=== PATIENT | female | born 1995 | race Caucasian/White ===

== ENCOUNTER 2016-08-12 19:12 | Emergency (ER) | payer OTHER ==
[2016-08-12 22:05] LABS: BASO # 0.1 K/mm3 (0.0-0.2); BASO % 0.6 % (0.0-1.0); EOS # 0.1 K/mm3 (0.0-0.50); EOS % 1.1 % (0.0-3.0); LARGE UNSTAINED CELL # 0.2 K/mm3 (0.0-0.4); LARGE UNSTAINED CELL % 1.8 % (0.0-4.0); LYMPH # 3.2 K/mm3 (1.5-6.5); MEAN CORPUSCULAR HGB CONC 33.8 g/dl (32.0-36.5); MEAN CORPUSCULAR VOLUME 91.6 fl (80.0-96.0); MONO # 0.6 K/mm3 (0.0-0.8); MONO % 4.4 % (0.0-5.0); NEUTROPHILS % 68.2 % (36.0-66.0); PLATELET COUNT, AUTOMATED 259 k/mm3 (150-450); RED CELL DISTRIBUTION WIDTH 11.8 % (11.5-14.5); WHITE BLOOD COUNT 13.2 K/mm3 (4.0-10.0)
[2016-08-12 22:31] LABS: ANION GAP 8 MEQ/L (8-16); BLOOD UREA NITROGEN 12 MG/DL (7-18); CALCIUM LEVEL 9.3 MG/DL (8.5-10.1); CARBON DIOXIDE LEVEL 26 MEQ/L (21-32); CHLORIDE LEVEL 106 MEQ/L (98-107); CREATININE FOR GFR 0.66 MG/DL (0.55-1.02); GLOMERULAR FILTRATION RATE > 60.0 (>60); GLUCOSE, FASTING 89 MG/DL (70-105); HCG, SERUM QUANTITATIVE 19364 MIU/ML; POTASSIUM SERUM 4.3 MEQ/L (3.5-5.1); SODIUM LEVEL 140 MEQ/L (136-145)
[2016-08-12] MEDS ORDERED: ACETAMINOPHEN 325 MG TAB As Ordered ONE ×2 (22:41→22:42)
--- NOTE | 2016-08-13 | REPUSA ---
Clinical history: vaginal spotting. Findings: Real-time transabdominal and transvaginal ultrasound images of the pelvis were obtained.a s too live intrauterine is demonstrated. The uterus measures 8.2 x 4.6 x 6.1 cm. The crown rump length measures 0.6 cm. heart rate measures 116 bpm. No subchorionic hemorrhage is identi fied. The uterus and adnexa appear grossly unremarkable, other than a simple right ovarian cyst measu ring 2.3 cm. The right ovary measures 3.8 x 2.3 x 2.6 cm. The left ovary was not visualized. There is no evidence of free fluid. Impression: Single live intrauterine measuring 6 weeks 3 days by ultrasound measurements, w ith a heart rate of 116 bpm. Right ovarian corpus luteum cyst.
[2016-08-13] MEDS ORDERED: OXYCODONE/APAP 5MG/325MG(BULK) 1 TAB TAB As Ordered ONE (01:52)
[2016-08-13] MEDS ORDERED: NORCO 5/325MG TABLET (BULK) As Ordered ONE (01:58)
--- NOTE | 2016-08-13 02:06 | EDDOCDS ---
Nurse's Notes [facility] Name: Rajani Brice Age: 21 yrs Sex: Female : 1995 Arrival Date: 08/12/2016 Time: 19:12 Bed I5 / M5 Private MD: Esther Garzon M. Diagnosis: Pelvic and perineal pain; related conditions, unspecified, first trimester Presentation: 08/12 19:22 Presenting complaint: Patient states: 7 weeks and had short episode of jo3 bleeding earlier. Bleeding has resolved now and pt denies cramping. Risk factors: The patient reports no loss of conciousness prior to arrival. This patient has not had a hysterectomy. This patient has not begun menopause. Adult Sepsis Screening: The patient does not have new or worsening altered mentation. Patient's respiratory rate is less than 22. Systolic blood pressure is greater than 100. Patient has a qSOFA score of 0- Negative Sepsis Screen. Suicide/Homicide risk assessment- the patient denies having any suicidal and/or homicidal ideations and does not present with any other emotional, behavioral or mental health complaints. Status: The patient is a dependent. Transition of care: patient was not received from another setting of care. 19:22 Acuity: JARRELL Level 3 jo3 19:22 Method Of Arrival: Walkin/Carried/Asstd jo3 Triage Assessment: 19:25 General: Appears in no apparent distress, Behavior is appropriate for age, cooperative. jo3 Pain: Denies pain. HIV screening NA for this visit Offered previously. Neurological: Level of Consciousness is awake, alert, Oriented to person, place, time. Respiratory: Airway is patent Respiratory effort is even, unlabored. : Reports vaginal bleeding that is resolving. Derm: Skin is pink, warm & dry. 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 folic acid 800 mcg Oral tab 3 tab once daily 2. Vitamin Oral tab 1 tab once daily - PMHx: Anxiety; Depression; Irritable bowel syndrome; - PSHx: Appendectomy; Cholecystectomy; - Social history: Smoking status: Patient states former smoker of tobacco. No barriers to communication noted, The patient speaks fluent Syriac, Speaks appropriately for age. - Family history: Not pertinent. - : The pt / caregiver states he / she is not on anticoagulants. Home medication list is obtained from the patient. - Exposure Risk Screening:: None identified. Screenin:17 Screening information is obtained from the patient. Fall risk: No risks identified. af2 Assistance ADL's: requires no assistance with activities of daily living. Abuse/DV Screen: The patient / caregiver reports he/she is: not in a situation that causes fear, pain or injury. Nutritional screening: No deficits noted. Advance Directives: Currently, there is no health care proxy. home support is adequate. Assessment: 22:43 General: Appears in no apparent distress, uncomfortable, Behavior is cooperative, pt af2 pacing, medicated for pain. states "is there a reason that i'm cramping?". 23:17 General: Appears in no apparent distress, Behavior is cooperative. Neurological: Level af2 of Consciousness is awake, alert. Respiratory: Airway is patent Respiratory effort is even, unlabored. Derm: Skin is normal. 08/13 00:15 General: Appears in no apparent distress, Behavior is cooperative. Neurological: Level af2 of Consciousness is awake, alert. Respiratory: Airway is patent Respiratory effort is even, unlabored. Derm: Skin is normal. 02:03 Reassessment: Patient appears in no apparent distress at this time. Patient states slm feeling better. Respiratory: No deficits noted. Vital Signs: 08/12 19:13 BP 156 / 76; Pulse 92; Resp 18; Temp 97.7(O); Pulse Ox 100% on R/A; Weight 81.65 kg ct3 (R); Height 5 ft. 6 in. (167.64 cm) (R); Pain 0/10; 08/13 01:50 BP 129 / 66; Pulse 84; Resp 18; Temp 97.8; Pulse Ox 98% ; Pain 4/10; ajs 01:55 BP 122 / 55; Pulse 94; Resp 18; Temp 98.5; Pulse Ox 99% ; Pain 7/10; ajs 08/12 19:13 Body Mass Index 29.05 (81.65 kg, 167.64 cm) ct3 Vitals: 08/12 19:13 Log In Time: August 12, 2016 at 19:10. ct3 ED Course: 19:13 Patient visited by Annette Whitfield PCA. ct3 19:13 Patient moved to Waiting ct3 19:14 Esther Garzon is Private Physician. ct3 19:14 Patient moved to Pre RCE ct3 19:24 Triage Initiated jo3 20:44 Patient visited by Beatrice Mcdonnell PCA. jb5 20:44 Patient moved to Triage 1 jb5 20:46 Dexter Chaparro RPA-C is PHCP. ck7 20:46 Alvin Venegas DO is Attending Physician. ck7 20:54 [facility] Payment Agreement was scanned into [employer] and attached to record. zo 21:03 Patient visited by Dexter Chaparro RPA-C. ck7 21:09 Patient moved to I5 / M5 jf3 21:40 Hcg, Serum Quantitative Sent. mcp 21:40 Urine Culture Sent. mcp 21:40 UA Sent. mcp 21:40 Type & Screen Sent. mcp 21:40 MED Profile Sent. mcp 21:40 CBC with Diff Sent. mcp 21:42 Patient visited by Dexter Chaparro RPA-C. ck7 22:17 Patient visited by Dexter Chaparro RPA-C. ck7 22:44 Patient visited by Lucia Asher RN. af2 23:18 Patient visited by Lucia Asher,RN. af2 23:30 Patient visited by Lucia Asher,RN. af2 08/13 00:02 Patient visited by Dexter Chaparro RPA-C. ck7 00:02 US 1st trimester Returned. EDMS 00:11 Wet Prep Sent. ajs 00:11 GC & Chlamydia Amplification Sent. ajs 00:11 Assist provider with pelvic exam: Set up pelvic tray. Specimens sent to lab. Performed slm by Dexter MOON Patient tolerated well. 00:36 Patient visited by Dexter Chaparro RPA-C. ck7 01:04 Patient visited by Lucia Asher,ANDREW. af2 01:10 PHCP role handed off by Dexter Chaparro RPA-C mo1 01:10 Raghav Vanegas PA is PHCP. mo1 01:48 Esther Garzon is Referral Physician. mo1 01:49 Cornell Willams MD is Referral Physician. mo1 01:50 Patient visited by Randi Christiansen. ajs 01:56 Patient visited by Randi Christiansen. ajs 02:02 Discontinued lock intact, bleeding controlled, pressure dressing applied, No slm redness/swelling at site. 02:04 The patient / caregiver is instructed regarding the plan of care and ED course. Patient slm has correct armband on for positive identification. Bed in low position. Call light in reach. Side rails up X 1. 02:05 Patient visited by Rena Amezquita LPN. slm Administered Medications: 08/12 21:47 Drug: NS 0.9% 1000 ml [sodium chloride 0.9 % intravenous solution] Route: IV; Rate: mcp bolus; Site: right antecubital; 08/13 02:04 Follow up: IV Status: Completed infusion slm 08/12 22:43 Drug: Acetaminophen 650 mg [acetaminophen 325 mg tablet (2 tabs)] Route: PO; af2 08/13 01:56 CANCELLED (Other Intervention Used): oxyCODONE-acetaminophen 4 pack 5 mg-325 mg 1 mo1 packets PO once; Dispense with pt, take as per instruction on package 02:02 Drug: HYDROcodone-acetaminophen 4 pack- 1 packets [hydrocodone 5 mg-acetaminophen 325 slm mg tablet (1 tabs)] {Co-Signature: af2 (Lucia Asher RN).} Route: PO; Order Results: Lab Order: CBC with Diff; SPEC'M 08/12/16 21:38 Test: WHITE BLOOD COUNT; Value: 13.2; Range: 4.0-10.0; Abnormal: Above high normal; Units: K/mm3; Status: F Test: RED BLOOD COUNT; Value: 4.54; Range: 4.00-5.40; Units: M/mm3; Status: F Test: HEMOGLOBIN; Value: 14.1; Range: 12.0-16.0; Units: g/dl; Status: F Test: HEMATOCRIT; Value: 41.6; Range: 36.0-47.0; Units: %; Status: F Test: MEAN CORPUSCULAR VOLUME; Value: 91.6; Range: 80.0-96.0; Units: fl; Status: F Test: MEAN CORPUSCULAR HEMOGLOBIN; Value: 31.0; Range: 27.0-33.0; Units: pg; Status: F Test: MEAN CORPUSCULAR HGB CONC; Value: 33.8; Range: 32.0-36.5; Units: g/dl; Status: F Test: RED CELL DISTRIBUTION WIDTH; Value: 11.8; Range: 11.5-14.5; Units: %; Status: F Test: PLATELET COUNT, AUTOMATED; Value: 259; Range: 150-450; Units: k/mm3; Status: F Test: NEUTROPHILS %; Value: 68.2; Range: 36.0-66.0; Abnormal: Above high normal; Units: %; Status: F Test: LYMPH %; Value: 24.0; Range: 24.0-44.0; Units: %; Status: F Test: MONO %; Value: 4.4; Range: 0.0-5.0; Units: %; Status: F Test: EOS %; Value: 1.1; Range: 0.0-3.0; Units: %; Status: F Test: BASO %; Value: 0.6; Range: 0.0-1.0; Units: %; Status: F Test: LARGE UNSTAINED CELL %; Value: 1.8; Range: 0.0-4.0; Units: %; Status: F Test: NEUTROPHILS #; Value: 9.0; Range: 1.8-7.7; Abnormal: Above high normal; Units: K/mm3; Status: F Test: LYMPH #; Value: 3.2; Range: 1.5-6.5; Units: K/mm3; Status: F Test: MONO #; Value: 0.6; Range: 0.0-0.8; Units: K/mm3; Status: F Test: EOS #; Value: 0.1; Range: 0.0-0.50; Units: K/mm3; Status: F Test: BASO #; Value: 0.1; Range: 0.0-0.2; Units: K/mm3; Status: F Test: LARGE UNSTAINED CELL #; Value: 0.2; Range: 0.0-0.4; Units: K/mm3; Status: F Lab Order: MED Profile; SPEC'M 08/12/16 21:38 Test: GLUCOSE, FASTING; Value: 89; Range: 70-105; Units: MG/DL; Status: F Test: BLOOD UREA NITROGEN; Value: 12; Range: 7-18; Units: MG/DL; Status: F Test: CREATININE FOR GFR; Value: 0.66; Range: 0.55-1.02; Units: MG/DL; Status: F Test: GLOMERULAR FILTRATION RATE; Value: > 60.0; Range: >60; Status: F Test: SODIUM LEVEL; Value: 140; Range: 136-145; Units: MEQ/L; Status: F Test: POTASSIUM SERUM; Value: 4.3; Range: 3.5-5.1; Units: MEQ/L; Status: F Test: CHLORIDE LEVEL; Value: 106; Range: 98-107; Units: MEQ/L; Status: F Test: CARBON DIOXIDE LEVEL; Value: 26; Range: 21-32; Units: MEQ/L; Status: F Test: ANION GAP; Value: 8; Range: 8-16; Units: MEQ/L; Status: F Test: CALCIUM LEVEL; Value: 9.3; Range: 8.5-10.1; Units: MG/DL; Status: F Test Note: ; Units are mL/min/1.73 m2 Chronic Kidney Disease Staging per NKF: Stage I & II GFR >=60 Normal to Mildly Decreased Stage III GFR 30-59 Moderately Decreased Stage IV GFR 15-29 Severely Decreased Stage V GFR <15 Very Little GFR Left ESRD GFR <[address]GE Lab Order: Type & Screen; SPEC'M 08/12/16 21:38 Test: BLOOD TYPE; Value: A POS; Status: F Test: AB SCREEN (INDIRECT YELITZA)GEL; Value: NEGATIVE; Status: F Lab Order: UA; SPEC'M 08/12/16 21:37 Test: APPEARANCE, URINE; Value: HAZY; Range: CLEAR; Status: F Test: COLOR, URINE; Value: YELLOW; Range: YELLOW; Status: F Test: PH,URINE; Value: 7.0; Range: 5.0-9.0; Units: UNITS; Status: F Test: SPECIFIC GRAVITY URINE AUTO; Value: 1.009; Range: 1.002-1.035; Status: F Test: PROTEIN, URINE AUTO; Value: NEGATIVE; Range: NEGATIVE; Units: mg/dL; Status: F Test: GLUCOSE, URINE (UA) AUTO; Value: NEGATIVE; Range: NEGATIVE; Units: mg/dL; Status: F Test: KETONE, URINE AUTO; Value: NEGATIVE; Range: NEGATIVE; Units: mg/dL; Status: F Test: UROBILINOGEN, URINE AUTO; Value: 0.2; Range: 0.0-2.0; Units: mg/dL; Status: F Test: BILIRUBIN, URINE AUTO; Value: NEGATIVE; Range: NEGATIVE; Status: F Test: NITRITE, URINE AUTO; Value: NEGATIVE; Range: NEGATIVE; Status: F Test: LEUKOCYTE ESTERASE, URINE AUTO; Value: 3+; Range: NEGATIVE; Abnormal: Above high normal; Status: F Test: BLOOD, URINE BLOOD; Value: 2+; Range: NEGATIVE; Abnormal: Above high normal; Status: F Test: WBC, URINE AUTO; Value: 6; Range: 0-3; Abnormal: Above high normal; Units: /HPF; Status: F Test: RBC, URINE AUTO; Value: 2; Range: 0-3; Units: /HPF; Status: F Test: BACTERIA, URINE AUTO; Value: 3+; Range: NEGATIVE; Abnormal: Above high normal; Status: F Test: SQUAMOUS EPITHELIAL CELL UR AU; Value: 2; Range: 0-6; Units: /HPF; Status: F Test: MUCUS, URINE; Value: SMALL; Range: NEGATIVE; Status: F Test: HYALINE CAST, URINE AUTO; Value: 0; Range: 0-1; Units: /LPF; Status: F Test: AMORPHOUS SEDIMENT; Value: SMALL; Range: NEGATIVE; Abnormal: Above high normal; Status: F Lab Order: Hcg, Serum Quantitative; SPEC'M 08/12/16 21:38 Test: HCG, SERUM QUANTITATIVE; Value: 58260; Units: MIU/ML; Status: F Test Note: ; GESTATIONAL AGE APPROXIMATE HCG RANGE (MIU/ML) 0.2-1 WEEK 5-50 1-2 WEEKS 50-500 2-3 WEEKS 100-5,000 3-4 WEEKS 500-10,000 4-5 WEEKS 1,000-50,000 5-6 WEEKS 10,000-100,000 6-8 WEEKS 15,000-200,000 2-3 MONTHS 10,000-100,000 NON FEMALES LESS THAN 3.0 Patient samples may contain human heterophilic antibodies that could react with immunoassays to give falsely elevated or depressed results. This assay has been designed to minimize interference from heterophilic antibodies. Elevated hCG levels have also been associated with trophoblastic disease and nontrophoblastic neoplasms. The possibility of having these diseases should be considered before a diagnosis of is made. This test is not intended for use as a surrogate marker for aiding in the diagnosis or monitoring the treatment of cancer patients. [employer] methodology. Lab Order: Wet Prep; SPEC'M 08/12/16 21:37 Test: WET PREP; Value: WET PREP RESULT; Status: F Test: WET PREP; Value: MANY EPITHELIAL CELLS PRESENT; Status: F Test: WET PREP; Value: MODERATE WBC; Status: F Test: WET PREP; Value: MODERATE LONG RODS PRESENT; Status: F Test: WET PREP; Value: FEW SHORT RODS PRESENT; Status: F Radiology Order: US 1st trimester Test: US 1st trimester REASON FOR EXAMINATION: Bleeding; ; Clinical history: vaginal spotting.; Findings: Real-time transabdominal and transvaginal ultrasound images of the pelvis were obtained.a s; too live intrauterine is demonstrated. The uterus measures 8.2 x 4.6 x 6.1 cm. The crown; rump length measures 0.6 cm. heart rate measures 116 bpm. No subchorionic hemorrhage is identi; fied. The uterus and adnexa appear grossly unremarkable, other than a simple right ovarian cyst measu; ring 2.3 cm. The right ovary measures 3.8 x 2.3 x 2.6 cm. The left ovary was not visualized. There is; no evidence of free fluid.; Impression: Single live intrauterine measuring 6 weeks 3 days by ultrasound measurements, w; ith a heart rate of 116 bpm. Right ovarian corpus luteum cyst.; ; Outcome: 01:49 Discharge ordered by Provider. mo1 02:03 Discharge Assessment: Patient awake, alert and oriented x 3. No cognitive and/or slm functional deficits noted. Patient verbalized understanding of disposition instructions. patient administered narcotics - no. 02:04 The following High Risk Discharge criteria are identified: None. Discharged to home slm ambulatory, with significant other. Condition: good Condition: improved. Discharge instructions given to patient, Instructed on discharge instructions, follow up and referral plans. medication usage, no driving heavy equipment, Demonstrated understanding of instructions, medications, Pt was receptive of discharge instructions/ teaching. Ultrasound Study completed. Property :Personal belongings accompany Pt. 02:05 Patient left the ED. [facility] Signatures: Dispatcher [employer] EDMS Elisa Jacob, RN RN Beatrice Bryson, JOINT SETTER JOINT SETTER jb5 Rashida ZambranoRN RN jo3 Kaden Diaz Consuelo, JOINT SETTER JOINT SETTER ct3 Randi Christiansen Christopher, NATANAEL-C RPA-Cck7 Raghav Vanegas PA PA mo1 Rena Amezquita,SAFETY AND SECURITY MANAGER SAFETY AND SECURITY MANAGER [facility] Lucia Asher RN RN af2 Abdelrahman Sims RN RN jf3 Lucia Asher RN af2 Corrections: (The following items were deleted from the chart) 01:56 01:54 oxyCODONE-acetaminophen 4 pack 5 mg-325 mg 1 packets PO sl mo1 MTDD
--- NOTE | 2016-08-13 02:06 | EDDOCDS ---
Physician Documentation [facility] Name: Rajani Brice Age: 21 yrs Sex: Female : 1995 Arrival Date: 08/12/2016 Time: 19:12 Bed I5 / M5 Private MD: Esther Garzon M. Disposition: 08/13/16 01:49 Discharged to Home/Self Care. Impression: Pelvic and perineal pain, related conditions, unspecified, first trimester. - Condition is Stable. - Discharge Instructions: First Trimester of , Abdominal Pain During . - Work Release Form - 4 day, Medication Reconciliation, Local Pharmacy Hours form. - Follow up: Esther Garzon; When: Call to arrange an appointment; Reason: Recheck today's complaints, Continuance of care. Follow up: Cornell Willams MD; When: Call to arrange an appointment; Reason: Recheck today's complaints, Continuance of care. - Problem is new. - Symptoms are unchanged. Historical: - Allergies: Effexor (locked jaw and tongue swelling); GABAPENTIN (lock jaw and tongue swelling); - Home Meds: 1. folic acid 800 mcg Oral tab 3 tab once daily 2. Vitamin Oral tab 1 tab once daily - PMHx: Anxiety; Depression; Irritable bowel syndrome; - PSHx: Appendectomy; Cholecystectomy; - Social history: Smoking status: Patient states former smoker of tobacco. No barriers to communication noted, The patient speaks fluent Welsh, Speaks appropriately for age. - Family history: Not pertinent. - : The pt / caregiver states he / she is not on anticoagulants. Home medication list is obtained from the patient. - Exposure Risk Screening:: None identified. 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 6 in. (167.64 cm) (R); Pain 0/10; 08/13 01:50 BP 129 / 66; Pulse 84; Resp 18; Temp 97.8; Pulse Ox 98% ; Pain 4/10; ajs 01:55 BP 122 / 55; Pulse 94; Resp 18; Temp 98.5; Pulse Ox 99% ; Pain 7/10; ajs 08/12 19:13 Body Mass Index 29.05 (81.65 kg, 167.64 cm) ct3 MDM: 08/12 20:54 [facility] [place] was scanned into [employer] and attached to record. zo 21:06 Financial registration complete. gjb 21:28 IV Saline Lock ordered. ck7 21:28 NS 0.9% 1000 ml IV at bolus once ordered. ck7 21:28 Set up pelvic ordered. ck7 21:29 CBC with Diff Ordered. EDMS 21:29 MED Profile Ordered. EDMS 21:29 UA Ordered. EDMS 21:29 Hcg, Serum Quantitative Ordered. EDMS 21:29 GC & Chlamydia Amplification Ordered. EDMS 21:29 Urine Culture Ordered. EDMS 21:29 Wet Prep Ordered. EDMS 21:29 US 1st trimester Ordered. EDMS 21:29 Type & Screen Ordered. EDMS 22:37 Acetaminophen Tablet 650 mg PO once ordered. ck7 22:38 CBC with Diff Reviewed. ck7 22:38 UA Reviewed. ck7 22:38 MED Profile Reviewed. ck7 22:38 Type & Screen Reviewed. ck7 22:38 Hcg, Serum Quantitative Reviewed. ck7 08/13 00:06 US 1st trimester Reviewed. ck7 00:36 Wet Prep Reviewed. ck7 01:57 HYDROcodone-acetaminophen 4 pack- 5 mg-325 mg 1 packets PO Per package directions; mo1 Dispense with patient. 1 po q4h prn for pain ordered. Administered Medications: 08/12 21:47 Drug: NS 0.9% 1000 ml [sodium chloride 0.9 % intravenous solution] Route: IV; Rate: mcp bolus; Site: right antecubital; 08/13 02:04 Follow up: IV Status: Completed infusion [facility] 08/12 22:43 Drug: Acetaminophen 650 mg [acetaminophen 325 mg tablet (2 tabs)] Route: PO; af2 08/13 01:56 CANCELLED (Other Intervention Used): oxyCODONE-acetaminophen 4 pack 5 mg-325 mg 1 mo1 packets PO once; Dispense with pt, take as per instruction on package 02:02 Drug: HYDROcodone-acetaminophen 4 pack- 1 packets [hydrocodone 5 mg-acetaminophen 325 slm mg tablet (1 tabs)] {Co-Signature: af2 (Lucia Asher RN).} Route: PO; Signatures: Dispatcher [employer] Rashida Abebe,RN RN jo3 Kaden Diaz Christopher, RPA-C RPA-Cck7 Raghav Vanegas PA PA mo1 Rena Amezquita LPN LPN slm Beck, Gabriela gjb Peters, Mary RN mcp F[place]on, Amber RN af2 Lucia Asher RN af2 The chart was reviewed and I authenticate all verbal orders and agree with the evaluation and treatment provided.Corrections: (The following items were deleted from the chart) 01:56 01:47 oxyCODONE-acetaminophen 4 pack 5 mg-325 mg 1 packets PO once; Dispense with pt, mo1 take as per instruction on package ordered. mo1 01:56 01:56 oxyCODONE-acetaminophen 4 pack 5 mg-325 mg 1 packets PO once; Dispense with pt, mo1 take as per instruction on package ordered. mo1 Attachments: 08/12 20:54 [facility] [place] zo MTDD
--- NOTE | 2016-08-15 03:06 | EDDOCDS ---
Physician Documentation [facility] Name: Rajani Brice Age: 21 yrs Sex: Female : 1995 Arrival Date: 08/12/2016 Time: 19:12 Bed I5 / M5 Private MD: Esther Garzon M. Disposition: 08/13/16 01:49 Discharged to Home/Self Care. Impression: Pelvic and perineal pain, related conditions, unspecified, first trimester. - Condition is Stable. - Discharge Instructions: First Trimester of , Abdominal Pain During . - Work Release Form - 4 day, Medication Reconciliation, Local Pharmacy Hours form. - Follow up: Esther Garzon; When: Call to arrange an appointment; Reason: Recheck today's complaints, Continuance of care. Follow up: Cornell Willams MD; When: Call to arrange an appointment; Reason: Recheck today's complaints, Continuance of care. - Problem is new. - Symptoms are unchanged. Historical: - Allergies: Effexor (locked jaw and tongue swelling); GABAPENTIN (lock jaw and tongue swelling); - Home Meds: 1. folic acid 800 mcg Oral tab 3 tab once daily 2. Vitamin Oral tab 1 tab once daily - PMHx: Anxiety; Depression; Irritable bowel syndrome; - PSHx: Appendectomy; Cholecystectomy; - Social history: Smoking status: Patient states former smoker of tobacco. No barriers to communication noted, The patient speaks fluent Irish, Speaks appropriately for age. - Family history: Not pertinent. - : The pt / caregiver states he / she is not on anticoagulants. Home medication list is obtained from the patient. - Exposure Risk Screening:: None identified. 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 6 in. (167.64 cm) (R); Pain 0/10; 08/13 01:50 BP 129 / 66; Pulse 84; Resp 18; Temp 97.8; Pulse Ox 98% ; Pain 4/10; ajs 01:55 BP 122 / 55; Pulse 94; Resp 18; Temp 98.5; Pulse Ox 99% ; Pain 7/10; ajs 08/12 19:13 Body Mass Index 29.05 (81.65 kg, 167.64 cm) ct3 MDM: 08/12 20:54 [facility] Payment Agreement was scanned into [employer] and attached to record. zo 21:06 Financial registration complete. gjb 21:28 IV Saline Lock ordered. ck7 21:28 NS 0.9% 1000 ml IV at bolus once ordered. ck7 21:28 Set up pelvic ordered. ck7 21:29 CBC with Diff Ordered. EDMS 21:29 MED Profile Ordered. EDMS 21:29 UA Ordered. EDMS 21:29 Hcg, Serum Quantitative Ordered. EDMS 21:29 GC & Chlamydia Amplification Ordered. EDMS 21:29 Urine Culture Ordered. EDMS 21:29 Wet Prep Ordered. EDMS 21:29 US 1st trimester Ordered. EDMS 21:29 Type & Screen Ordered. EDMS 22:37 Acetaminophen Tablet 650 mg PO once ordered. ck7 22:38 CBC with Diff Reviewed. ck7 22:38 UA Reviewed. ck7 22:38 MED Profile Reviewed. ck7 22:38 Type & Screen Reviewed. ck7 22:38 Hcg, Serum Quantitative Reviewed. ck7 08/13 00:06 US 1st trimester Reviewed. ck7 00:36 Wet Prep Reviewed. ck7 01:57 HYDROcodone-acetaminophen 4 pack- 5 mg-325 mg 1 packets PO Per package directions; mo1 Dispense with patient. 1 po q4h prn for pain ordered. 09:14 T-Sheet-- Draft Copy was scanned into [employer] and attached to record. [facility] Administered Medications: 08/12 21:47 Drug: NS 0.9% 1000 ml [sodium chloride 0.9 % intravenous solution] Route: IV; Rate: mcp bolus; Site: right antecubital; 08/13 02:04 Follow up: IV Status: Completed infusion [facility] 08/12 22:43 Drug: Acetaminophen 650 mg [acetaminophen 325 mg tablet (2 tabs)] Route: PO; af2 08/13 01:56 CANCELLED (Other Intervention Used): oxyCODONE-acetaminophen 4 pack 5 mg-325 mg 1 mo1 packets PO once; Dispense with pt, take as per instruction on package 02:02 Drug: HYDROcodone-acetaminophen 4 pack- 1 packets [hydrocodone 5 mg-acetaminophen 325 slm mg tablet (1 tabs)] {Co-Signature: af2 (Lucia Asher RN).} Route: PO; Signatures: Dispatcher [employer] EDRashida Mayers,RN RN jo3 Kaden Diaz Christopher, RPA-C RPA-Cck7 Raghav Vanegas PA PA mo1 Rena Amezquita,NET DEVELOPER SOFTWARE ENGINEER C NET DEVELOPER SOFTWARE ENGINEER C slm Joyce Miguel Sarah seh Peters, Mary RN mcp Fulton, Amber RN af2 uLcia Asher RN af2 The chart was reviewed and I authenticate all verbal orders and agree with the evaluation and treatment provided.Corrections: (The following items were deleted from the chart) 01:56 01:47 oxyCODONE-acetaminophen 4 pack 5 mg-325 mg 1 packets PO once; Dispense with pt, mo1 take as per instruction on package ordered. mo1 01:56 01:56 oxyCODONE-acetaminophen 4 pack 5 mg-325 mg 1 packets PO once; Dispense with pt, mo1 take as per instruction on package ordered. mo1 Attachments: 08/12 20:54 [facility] Payment Agreement zo 08/13 09:14 T-Sheet-- Draft Copy [facility] Chart Complete MTDD
--- NOTE | 2016-08-15 03:06 | EDDOCDS ---
Nurse's Notes [facility] Name: Rajani Brice Age: 21 yrs Sex: Female : 1995 Arrival Date: 08/12/2016 Time: 19:12 Bed I5 / M5 Private MD: Esther Garzon M. Diagnosis: Pelvic and perineal pain; related conditions, unspecified, first trimester Presentation: 08/12 19:22 Presenting complaint: Patient states: 7 weeks and had short episode of jo3 bleeding earlier. Bleeding has resolved now and pt denies cramping. Risk factors: The patient reports no loss of conciousness prior to arrival. This patient has not had a hysterectomy. This patient has not begun menopause. Adult Sepsis Screening: The patient does not have new or worsening altered mentation. Patient's respiratory rate is less than 22. Systolic blood pressure is greater than 100. Patient has a qSOFA score of 0- Negative Sepsis Screen. Suicide/Homicide risk assessment- the patient denies having any suicidal and/or homicidal ideations and does not present with any other emotional, behavioral or mental health complaints. Status: The patient is a dependent. Transition of care: patient was not received from another setting of care. 19:22 Acuity: JARRELL Level 3 jo3 19:22 Method Of Arrival: Walkin/Carried/Asstd jo3 Triage Assessment: 19:25 General: Appears in no apparent distress, Behavior is appropriate for age, cooperative. jo3 Pain: Denies pain. HIV screening NA for this visit Offered previously. Neurological: Level of Consciousness is awake, alert, Oriented to person, place, time. Respiratory: Airway is patent Respiratory effort is even, unlabored. : Reports vaginal bleeding that is resolving. Derm: Skin is pink, warm & dry. 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 folic acid 800 mcg Oral tab 3 tab once daily 2. Vitamin Oral tab 1 tab once daily - PMHx: Anxiety; Depression; Irritable bowel syndrome; - PSHx: Appendectomy; Cholecystectomy; - Social history: Smoking status: Patient states former smoker of tobacco. No barriers to communication noted, The patient speaks fluent Georgian, Speaks appropriately for age. - Family history: Not pertinent. - : The pt / caregiver states he / she is not on anticoagulants. Home medication list is obtained from the patient. - Exposure Risk Screening:: None identified. Screenin:17 Screening information is obtained from the patient. Fall risk: No risks identified. af2 Assistance ADL's: requires no assistance with activities of daily living. Abuse/DV Screen: The patient / caregiver reports he/she is: not in a situation that causes fear, pain or injury. Nutritional screening: No deficits noted. Advance Directives: Currently, there is no health care proxy. home support is adequate. Assessment: 22:43 General: Appears in no apparent distress, uncomfortable, Behavior is cooperative, pt af2 pacing, medicated for pain. states "is there a reason that i'm cramping?". 23:17 General: Appears in no apparent distress, Behavior is cooperative. Neurological: Level af2 of Consciousness is awake, alert. Respiratory: Airway is patent Respiratory effort is even, unlabored. Derm: Skin is normal. 08/13 00:15 General: Appears in no apparent distress, Behavior is cooperative. Neurological: Level af2 of Consciousness is awake, alert. Respiratory: Airway is patent Respiratory effort is even, unlabored. Derm: Skin is normal. 02:03 Reassessment: Patient appears in no apparent distress at this time. Patient states slm feeling better. Respiratory: No deficits noted. Vital Signs: 08/12 19:13 BP 156 / 76; Pulse 92; Resp 18; Temp 97.7(O); Pulse Ox 100% on R/A; Weight 81.65 kg ct3 (R); Height 5 ft. 6 in. (167.64 cm) (R); Pain 0/10; 08/13 01:50 BP 129 / 66; Pulse 84; Resp 18; Temp 97.8; Pulse Ox 98% ; Pain 4/10; ajs 01:55 BP 122 / 55; Pulse 94; Resp 18; Temp 98.5; Pulse Ox 99% ; Pain 7/10; ajs 08/12 19:13 Body Mass Index 29.05 (81.65 kg, 167.64 cm) ct3 Vitals: 08/12 19:13 Log In Time: August 12, 2016 at 19:10. ct3 ED Course: 19:13 Patient visited by Annette Whitfield PCA. ct3 19:13 Patient moved to Waiting ct3 19:14 Esther Garzon is Private Physician. ct3 19:14 Patient moved to Pre RCE ct3 19:24 Triage Initiated jo3 20:44 Patient visited by Beatrice Mcdonnell PCA. jb5 20:44 Patient moved to Triage 1 jb5 20:46 Dexter Chaparro RPA-C is PHCP. ck7 20:46 Alvin Venegas DO is Attending Physician. ck7 20:54 [facility] Payment Agreement was scanned into [employer] and attached to record. zo 21:03 Patient visited by Dexter Chaparro RPA-C. ck7 21:09 Patient moved to I5 / M5 jf3 21:40 Hcg, Serum Quantitative Sent. mcp 21:40 Urine Culture Sent. mcp 21:40 UA Sent. mcp 21:40 Type & Screen Sent. mcp 21:40 MED Profile Sent. mcp 21:40 CBC with Diff Sent. mcp 21:42 Patient visited by Dexter Chaparro RPA-C. ck7 22:17 Patient visited by Dexter Chaparro RPA-C. ck7 22:44 Patient visited by Lucia Asher RN. af2 23:18 Patient visited by Lucia Asher,RN. af2 23:30 Patient visited by Lucia Asher,RN. af2 08/13 00:02 Patient visited by Dexter Chaparro RPA-C. ck7 00:02 US 1st trimester Returned. EDMS 00:11 Wet Prep Sent. ajs 00:11 GC & Chlamydia Amplification Sent. ajs 00:11 Assist provider with pelvic exam: Set up pelvic tray. Specimens sent to lab. Performed slm by Dexter MOON Patient tolerated well. 00:36 Patient visited by Dexter Chaparro RPA-C. ck7 01:04 Patient visited by Lucia Asher,ANDREW. af2 01:10 PHCP role handed off by Dexter Chaparro RPA-C mo1 01:10 Raghav Vanegas PA is PHCP. mo1 01:48 Esther Garzon is Referral Physician. mo1 01:49 Cornell Willams MD is Referral Physician. mo1 01:50 Patient visited by Randi Christiansen. ajs 01:56 Patient visited by Randi Christiansen. ajs 02:02 Discontinued lock intact, bleeding controlled, pressure dressing applied, No slm redness/swelling at site. 02:04 The patient / caregiver is instructed regarding the plan of care and ED course. Patient slm has correct armband on for positive identification. Bed in low position. Call light in reach. Side rails up X 1. 02:05 Patient visited by Rena Amezquita LPN. [facility] 09:14 T-Sheet-- Draft Copy was scanned into [employer] and attached to record. [facility] Administered Medications: 08/12 21:47 Drug: NS 0.9% 1000 ml [sodium chloride 0.9 % intravenous solution] Route: IV; Rate: mcp bolus; Site: right antecubital; 08/13 02:04 Follow up: IV Status: Completed infusion [facility] 08/12 22:43 Drug: Acetaminophen 650 mg [acetaminophen 325 mg tablet (2 tabs)] Route: PO; af2 08/13 01:56 CANCELLED (Other Intervention Used): oxyCODONE-acetaminophen 4 pack 5 mg-325 mg 1 mo1 packets PO once; Dispense with pt, take as per instruction on package 02:02 Drug: HYDROcodone-acetaminophen 4 pack- 1 packets [hydrocodone 5 mg-acetaminophen 325 slm mg tablet (1 tabs)] {Co-Signature: af2 (Lucia Asher RN).} Route: PO; Order Results: Lab Order: CBC with Diff; SPEC'M 08/12/16 21:38 Test: WHITE BLOOD COUNT; Value: 13.2; Range: 4.0-10.0; Abnormal: Above high normal; Units: K/mm3; Status: F Test: RED BLOOD COUNT; Value: 4.54; Range: 4.00-5.40; Units: M/mm3; Status: F Test: HEMOGLOBIN; Value: 14.1; Range: 12.0-16.0; Units: g/dl; Status: F Test: HEMATOCRIT; Value: 41.6; Range: 36.0-47.0; Units: %; Status: F Test: MEAN CORPUSCULAR VOLUME; Value: 91.6; Range: 80.0-96.0; Units: fl; Status: F Test: MEAN CORPUSCULAR HEMOGLOBIN; Value: 31.0; Range: 27.0-33.0; Units: pg; Status: F Test: MEAN CORPUSCULAR HGB CONC; Value: 33.8; Range: 32.0-36.5; Units: g/dl; Status: F Test: RED CELL DISTRIBUTION WIDTH; Value: 11.8; Range: 11.5-14.5; Units: %; Status: F Test: PLATELET COUNT, AUTOMATED; Value: 259; Range: 150-450; Units: k/mm3; Status: F Test: NEUTROPHILS %; Value: 68.2; Range: 36.0-66.0; Abnormal: Above high normal; Units: %; Status: F Test: LYMPH %; Value: 24.0; Range: 24.0-44.0; Units: %; Status: F Test: MONO %; Value: 4.4; Range: 0.0-5.0; Units: %; Status: F Test: EOS %; Value: 1.1; Range: 0.0-3.0; Units: %; Status: F Test: BASO %; Value: 0.6; Range: 0.0-1.0; Units: %; Status: F Test: LARGE UNSTAINED CELL %; Value: 1.8; Range: 0.0-4.0; Units: %; Status: F Test: NEUTROPHILS #; Value: 9.0; Range: 1.8-7.7; Abnormal: Above high normal; Units: K/mm3; Status: F Test: LYMPH #; Value: 3.2; Range: 1.5-6.5; Units: K/mm3; Status: F Test: MONO #; Value: 0.6; Range: 0.0-0.8; Units: K/mm3; Status: F Test: EOS #; Value: 0.1; Range: 0.0-0.50; Units: K/mm3; Status: F Test: BASO #; Value: 0.1; Range: 0.0-0.2; Units: K/mm3; Status: F Test: LARGE UNSTAINED CELL #; Value: 0.2; Range: 0.0-0.4; Units: K/mm3; Status: F Lab Order: MED Profile; SPEC'M 08/12/16 21:38 Test: GLUCOSE, FASTING; Value: 89; Range: 70-105; Units: MG/DL; Status: F Test: BLOOD UREA NITROGEN; Value: 12; Range: 7-18; Units: MG/DL; Status: F Test: CREATININE FOR GFR; Value: 0.66; Range: 0.55-1.02; Units: MG/DL; Status: F Test: GLOMERULAR FILTRATION RATE; Value: > 60.0; Range: >60; Status: F Test: SODIUM LEVEL; Value: 140; Range: 136-145; Units: MEQ/L; Status: F Test: POTASSIUM SERUM; Value: 4.3; Range: 3.5-5.1; Units: MEQ/L; Status: F Test: CHLORIDE LEVEL; Value: 106; Range: 98-107; Units: MEQ/L; Status: F Test: CARBON DIOXIDE LEVEL; Value: 26; Range: 21-32; Units: MEQ/L; Status: F Test: ANION GAP; Value: 8; Range: 8-16; Units: MEQ/L; Status: F Test: CALCIUM LEVEL; Value: 9.3; Range: 8.5-10.1; Units: MG/DL; Status: F Test Note: ; Units are mL/min/1.73 m2 Chronic Kidney Disease Staging per NKF: Stage I & II GFR >=60 Normal to Mildly Decreased Stage III GFR 30-59 Moderately Decreased Stage IV GFR 15-29 Severely Decreased Stage V GFR <15 Very Little GFR Left ESRD GFR <15 on COOK SUPERVISOR Lab Order: Type & Screen; SPEC08/12/16 21:38 Test: BLOOD TYPE; Value: A POS; Status: F Test: AB SCREEN (INDIRECT YELITZA)GEL; Value: NEGATIVE; Status: F Lab Order: UA; SPEC08/12/16 21:37 Test: APPEARANCE, URINE; Value: HAZY; Range: CLEAR; Status: F Test: COLOR, URINE; Value: YELLOW; Range: YELLOW; Status: F Test: PH,URINE; Value: 7.0; Range: 5.0-9.0; Units: UNITS; Status: F Test: SPECIFIC GRAVITY URINE AUTO; Value: 1.009; Range: 1.002-1.035; Status: F Test: PROTEIN, URINE AUTO; Value: NEGATIVE; Range: NEGATIVE; Units: mg/dL; Status: F Test: GLUCOSE, URINE (UA) AUTO; Value: NEGATIVE; Range: NEGATIVE; Units: mg/dL; Status: F Test: KETONE, URINE AUTO; Value: NEGATIVE; Range: NEGATIVE; Units: mg/dL; Status: F Test: UROBILINOGEN, URINE AUTO; Value: 0.2; Range: 0.0-2.0; Units: mg/dL; Status: F Test: BILIRUBIN, URINE AUTO; Value: NEGATIVE; Range: NEGATIVE; Status: F Test: NITRITE, URINE AUTO; Value: NEGATIVE; Range: NEGATIVE; Status: F Test: LEUKOCYTE ESTERASE, URINE AUTO; Value: 3+; Range: NEGATIVE; Abnormal: Above high normal; Status: F Test: BLOOD, URINE BLOOD; Value: 2+; Range: NEGATIVE; Abnormal: Above high normal; Status: F Test: WBC, URINE AUTO; Value: 6; Range: 0-3; Abnormal: Above high normal; Units: /HPF; Status: F Test: RBC, URINE AUTO; Value: 2; Range: 0-3; Units: /HPF; Status: F Test: BACTERIA, URINE AUTO; Value: 3+; Range: NEGATIVE; Abnormal: Above high normal; Status: F Test: SQUAMOUS EPITHELIAL CELL UR AU; Value: 2; Range: 0-6; Units: /HPF; Status: F Test: MUCUS, URINE; Value: SMALL; Range: NEGATIVE; Status: F Test: HYALINE CAST, URINE AUTO; Value: 0; Range: 0-1; Units: /LPF; Status: F Test: AMORPHOUS SEDIMENT; Value: SMALL; Range: NEGATIVE; Abnormal: Above high normal; Status: F Lab Order: Urine Culture; SPEC'M 08/12/16 21:37 Test: URINE CULTURE; Value: URINE CULTURE RESULT SPECIMEN APPEARS CONTAMINATED; Status: F Lab Order: Hcg, Serum Quantitative; SPEC'M 08/12/16 21:38 Test: HCG, SERUM QUANTITATIVE; Value: [id number]; Units: MIU/ML; Status: F Test Note: ; GESTATIONAL AGE APPROXIMATE HCG RANGE (MIU/ML) 0.2-1 WEEK 5-50 1-2 WEEKS 50-500 2-3 WEEKS 100-5,000 3-4 WEEKS 500-10,000 4-5 WEEKS 1,000-50,000 5-6 WEEKS 10,000-100,000 6-8 WEEKS 15,000-200,000 2-3 MONTHS 10,000-100,000 NON FEMALES LESS THAN 3.0 Patient samples may contain human heterophilic antibodies that could react with immunoassays to give falsely elevated or depressed results. This assay has been designed to minimize interference from heterophilic antibodies. Elevated hCG levels have also been associated with trophoblastic disease and nontrophoblastic neoplasms. The possibility of having these diseases should be considered before a diagnosis of is made. This test is not intended for use as a surrogate marker for aiding in the diagnosis or monitoring the treatment of cancer patients. Siemens Shoop methodology. Lab Order: GC & Chlamydia Amplification; SPEC'M 08/12/16 21:37 Test: CHLAMYDIA DNA AMPLIFICATION; Value: NEGATIVE; Range: NEGATIVE; Status: F Test: GC DNA AMPLIFICATION; Value: NEGATIVE; Range: NEGATIVE; Status: F Lab Order: Wet Prep; SPEC'M 08/12/16 21:37 Test: WET PREP; Value: WET PREP RESULT; Status: F Test: WET PREP; Value: MANY EPITHELIAL CELLS PRESENT; Status: F Test: WET PREP; Value: MODERATE WBC; Status: F Test: WET PREP; Value: MODERATE LONG RODS PRESENT; Status: F Test: WET PREP; Value: FEW SHORT RODS PRESENT; Status: F Radiology Order: US 1st trimester Test: US 1st trimester REASON FOR EXAMINATION: Bleeding; ; Clinical history: vaginal spotting.; Findings: Real-time transabdominal and transvaginal ultrasound images of the pelvis were obtained.a s; too live intrauterine is demonstrated. The uterus measures 8.2 x 4.6 x 6.1 cm. The crown; rump length measures 0.6 cm. heart rate measures 116 bpm. No subchorionic hemorrhage is identi; fied. The uterus and adnexa appear grossly unremarkable, other than a simple right ovarian cyst measu; ring 2.3 cm. The right ovary measures 3.8 x 2.3 x 2.6 cm. The left ovary was not visualized. There is; no evidence of free fluid.; Impression: Single live intrauterine measuring 6 weeks 3 days by ultrasound measurements, w; ith a heart rate of 116 bpm. Right ovarian corpus luteum cyst.; ; Outcome: 01:49 Discharge ordered by Provider. mo1 02:03 Discharge Assessment: Patient awake, alert and oriented x 3. No cognitive and/or slm functional deficits noted. Patient verbalized understanding of disposition instructions. patient administered narcotics - no. 02:04 The following High Risk Discharge criteria are identified: None. Discharged to home slm ambulatory, with significant other. Condition: good Condition: improved. Discharge instructions given to patient, Instructed on discharge instructions, follow up and referral plans. medication usage, no driving heavy equipment, Demonstrated understanding of instructions, medications, Pt was receptive of discharge instructions/ teaching. Ultrasound Study completed. Property :Personal belongings accompany Pt. 02:05 Patient left the ED. [facility] Signatures: Dispatcher [employer] EDMS Elisa Jacob RN RN mcp Baker, Janet, AUTOMOTIVE TECHNICIAN AUTOMOTIVE TECHNICIAN jb5 Rashida ZambranoRN RN jo3 Kaden Diaz Consuelo, AUTOMOTIVE TECHNICIAN AUTOMOTIVE TECHNICIAN ct3 Randi Christiansen Christopher, RPA-C RPA-Cck7 Raghav Vanegas PA PA mo1 Rena Amezquita,DIE TROUBLE SHOOTER DIE TROUBLE SHOOTER slm Lucia Asher RN RN af2 Abdelrahman Sims RN RN jf3 Hoffert, Sarah seh Amber Fulton RN af2 Corrections: (The following items were deleted from the chart) 01:56 01:54 oxyCODONE-acetaminophen 4 pack 5 mg-325 mg 1 packets PO slm mo1 Chart Complete MTDD
--- NOTE | 2016-08-15 03:06 | EDDOCDS ---
Physician Documentation [facility] Name: Rajani Brice Age: 21 yrs Sex: Female : 1995 Arrival Date: 08/12/2016 Time: 19:12 Bed I5 / M5 Private MD: Esther Garzon M. Disposition: 08/13/16 01:49 Discharged to Home/Self Care. Impression: Pelvic and perineal pain, related conditions, unspecified, first trimester. - Condition is Stable. - Discharge Instructions: First Trimester of , Abdominal Pain During . - Work Release Form - 4 day, Medication Reconciliation, Local Pharmacy Hours form. - Follow up: Esther Garzon; When: Call to arrange an appointment; Reason: Recheck today's complaints, Continuance of care. Follow up: Cornell Willams MD; When: Call to arrange an appointment; Reason: Recheck today's complaints, Continuance of care. - Problem is new. - Symptoms are unchanged. Historical: - Allergies: Effexor (locked jaw and tongue swelling); GABAPENTIN (lock jaw and tongue swelling); - Home Meds: 1. folic acid 800 mcg Oral tab 3 tab once daily 2. Vitamin Oral tab 1 tab once daily - PMHx: Anxiety; Depression; Irritable bowel syndrome; - PSHx: Appendectomy; Cholecystectomy; - Social history: Smoking status: Patient states former smoker of tobacco. No barriers to communication noted, The patient speaks fluent Upper Sorbian, Speaks appropriately for age. - Family history: Not pertinent. - : The pt / caregiver states he / she is not on anticoagulants. Home medication list is obtained from the patient. - Exposure Risk Screening:: None identified. OFFICE AGENT: 08/12 19:25 3, 2, LMP 06/24/2016, Verified, EDC 03/31/2017, Gestational jo3 age from LMP: 7 weeks 1 day Vital Signs: 19:13 BP 156 / 76; Pulse 92; Resp 18; Temp 97.7(O); Pulse Ox 100% on R/A; Weight 81.65 kg / ct3 180.01 lbs (R); Height 5 ft. 6 in. (167.64 cm) (R); Pain 0/10; 08/13 01:50 BP 129 / 66; Pulse 84; Resp 18; Temp 97.8; Pulse Ox 98% ; Pain 4/10; ajs 01:55 BP 122 / 55; Pulse 94; Resp 18; Temp 98.5; Pulse Ox 99% ; Pain 7/10; ajs 08/12 19:13 Body Mass Index 29.05 (81.65 kg, 167.64 cm) ct3 MDM: 08/12 20:54 [facility] [place] Agreement was scanned into Siperian and attached to record. zo 21:06 Financial registration complete. gjb 21:28 IV Saline Lock ordered. ck7 21:28 NS 0.9% 1000 ml IV at bolus once ordered. ck7 21:28 Set up pelvic ordered. ck7 21:29 CBC with Diff Ordered. EDMS 21:29 MED Profile Ordered. EDMS 21:29 UA Ordered. EDMS 21:29 Hcg, Serum Quantitative Ordered. EDMS 21:29 GC & Chlamydia Amplification Ordered. EDMS 21:29 Urine Culture Ordered. EDMS 21:29 Wet Prep Ordered. EDMS 21:29 US 1st trimester Ordered. EDMS 21:29 Type & Screen Ordered. EDMS 22:37 Acetaminophen Tablet 650 mg PO once ordered. ck7 22:38 CBC with Diff Reviewed. ck7 22:38 UA Reviewed. ck7 22:38 MED Profile Reviewed. ck7 22:38 Type & Screen Reviewed. ck7 22:38 Hcg, Serum Quantitative Reviewed. ck7 08/13 00:06 US 1st trimester Reviewed. ck7 00:36 Wet Prep Reviewed. ck7 01:57 HYDROcodone-acetaminophen 4 pack- 5 mg-325 mg 1 packets PO Per package directions; mo1 Dispense with patient. 1 po q4h prn for pain ordered. 09:14 T-Sheet-- Draft Copy was scanned into Siperian and attached to record. [facility] Administered Medications: 08/12 21:47 Drug: NS 0.9% 1000 ml [sodium chloride 0.9 % intravenous solution] Route: IV; Rate: mcp bolus; Site: right antecubital; 08/13 02:04 Follow up: IV Status: Completed infusion [facility] 08/12 22:43 Drug: Acetaminophen 650 mg [acetaminophen 325 mg tablet (2 tabs)] Route: PO; af2 08/13 01:56 CANCELLED (Other Intervention Used): oxyCODONE-acetaminophen 4 pack 5 mg-325 mg 1 mo1 packets PO once; Dispense with pt, take as per instruction on package 02:02 Drug: HYDROcodone-acetaminophen 4 pack- 1 packets [hydrocodone 5 mg-acetaminophen 325 slm mg tablet (1 tabs)] {Co-Signature: af2 (Lucia Asher RN).} Route: PO; Signatures: Dispatcher [employer] EDRashida Mayers,RN RN jo3 Kaden Diaz Christopher, RPA-C RPA-Cck7 Raghav Vanegas PA PA mo1 Rena Amezquita,PARACHUTE REPAIRER PARACHUTE REPAIRER slm Joyce Miguel Sarah seh Peters, Mary RN mcp [place], Amber RN af2 Lucia Asher RN af2 The chart was reviewed and I authenticate all verbal orders and agree with the evaluation and treatment provided.Corrections: (The following items were deleted from the chart) 01:56 01:47 oxyCODONE-acetaminophen 4 pack 5 mg-325 mg 1 packets PO once; Dispense with pt, mo1 take as per instruction on package ordered. mo1 01:56 01:56 oxyCODONE-acetaminophen 4 pack 5 mg-325 mg 1 packets PO once; Dispense with pt, mo1 take as per instruction on package ordered. mo1 Attachments: 08/12 20:54 [facility] Payment Agreement zo 08/13 09:14 T-Sheet-- Draft Copy [facility] Chart Complete MTDD
== END 2016-08-13 02:05 | disposition home or self-care (01) ==
LOC: M ED 19:12
DX: O99.89 Other specified diseases and conditions complicating pregnancy, childbirth and the puerperium (principal); R10.9 Unspecified abdominal pain; Z3A.01 Less than 8 weeks gestation of pregnancy; O99.341 Other mental disorders complicating pregnancy, first trimester; F41.9 Anxiety disorder, unspecified; F32.9 Major depressive disorder, single episode, unspecified; K58.9 Irritable bowel syndrome, unspecified; Z79.899 Other long term (current) drug therapy; Z87.891 Personal history of nicotine dependence; Z88.8 Allergy status to other drugs, medicaments and biological substances

== ENCOUNTER → 2016-08-24 | Outpatient (CLI) | payer OTHER ==
[2016-08-24 17:40] LABS: BASO % 0.5 % (0.0-1.0); EOS # 0.1 K/mm3 (0.0-0.50); EOS % 1.4 % (0.0-3.0); LARGE UNSTAINED CELL # 0.1 K/mm3 (0.0-0.4); LARGE UNSTAINED CELL % 0.9 % (0.0-4.0); LYMPH # 1.6 K/mm3 (1.5-6.5); LYMPH % 14.8 % (24.0-44.0); MEAN CORPUSCULAR HEMOGLOBIN 32.4 pg (27.0-33.0); MEAN CORPUSCULAR HGB CONC 34.9 g/dl (32.0-36.5); MEAN CORPUSCULAR VOLUME 92.7 fl (80.0-96.0); MONO # 0.5 K/mm3 (0.0-0.8); MONO % 4.8 % (0.0-5.0); NEUTROPHILS # 8.1 K/mm3 (1.8-7.7); NEUTROPHILS % 77.6 % (36.0-66.0); PLATELET COUNT, AUTOMATED 229 k/mm3 (150-450); RED CELL DISTRIBUTION WIDTH 11.8 % (11.5-14.5); WHITE BLOOD COUNT 10.5 K/mm3 (4.0-10.0)
[2016-08-25 13:36] LABS: CONTROL LINE INT CTR LINE PRESENT; HIV SCRN NEGATIVE (NEGATIVE); HIV SCRN1 NEGATIVE (NEGATIVE)
[2016-08-26 10:41] LABS: HBsAg Prenatal NEGATIVE (NEGATIVE)
== END ==
LOC: M LRY 10:35
PROVIDERS: ATTEND Advanced Practice Midwife
DX: Z34.81 Encounter for supervision of other normal pregnancy, first trimester (principal)

== ENCOUNTER → 2016-10-03 | Outpatient (REF) | payer OTHER | LOC: M SFHCLERA 15:34 | PROVIDERS: ATTEND Nurse Practitioner Family | DX: R10.9 Unspecified abdominal pain (principal) ==

== ENCOUNTER → 2016-10-31 | Outpatient (CLI) | payer OTHER | LOC: M SMT 13:19 | PROVIDERS: ATTEND Obstetrics & Gynecology | DX: Z36 Encounter for antenatal screening of mother (principal); Z3A.19 19 weeks gestation of pregnancy ==

== ENCOUNTER → 2016-11-07 | Outpatient (CLI) | payer OTHER ==
--- NOTE | 2016-11-07 14:01 | REP ---
OB ULTRASOUND: Real-time sonographic evaluation of the gravid uterus is performed utilizing transabdominal technique. There is a single living intrauterine gestation with an estimated age of 19 weeks 1 day, EDC 04/02/2017. Today's measurements indicate appropriate growth. Biometry and Growth: BPD 44 mm = 19 weeks 2 days, 54th percentile HC 172 mm = 19 weeks 5 days, 70th percentile AC 143 mm = 19 weeks 4 days, 61st percentile FL 31 mm = 19 weeks 4 days, 61st percentile HC/AC ratio 1.21 within normal range. Estimated weight 301 grams 65th percentile SEEN/GROSSLY UNREMARKABLE Lateral ventricles Yes Posterior fossa Yes Upper lip Yes Four-chamber heart No LVOT No RVOT No Stomach Yes Cord insertion Yes Three vessel cord Yes Kidneys Yes Bladder Yes Spine Yes Cervical length: Closed and measures 3.6 cm = length heart rate: 155 beats per minute. position: Vertex. Placenta: Anterior and grade 0 with no previa or abruptions. Amniotic fluid: Within normal limits. Signed by Mandeep Espinoza MD 11/07/2016 04:44 P
== END ==
LOC: M RAD 10:27
PROVIDERS: ATTEND Obstetrics & Gynecology
DX: Z36 Encounter for antenatal screening of mother (principal); Z3A.19 19 weeks gestation of pregnancy

== ENCOUNTER 2016-11-13 21:18 | Outpatient (CLI) | payer OTHER ==
[~2016-11-13] VITALS: Ht 167.6 cm; Wt 94.0 kg
[2016-11-13 21:31] VITALS: BP 158/86
[2016-11-13 22:35] LABS: MEAN CORPUSCULAR HEMOGLOBIN 31.6 pg (27.0-33.0); MEAN CORPUSCULAR HGB CONC 34.1 g/dl (32.0-36.5); MEAN CORPUSCULAR VOLUME 92.8 fl (80.0-96.0); RED CELL DISTRIBUTION WIDTH 12.3 % (11.5-14.5); WHITE BLOOD COUNT 13.5 K/mm3 (4.0-10.0)
[2016-11-13 22:42] VITALS: BP 118/80
[2016-11-13 23:22] VITALS: BP 141/93
[2016-11-14 02:32] VITALS: BP 122/81
[2016-11-14] MEDS ORDERED: MORPHINE 10 MG/ML 1ML VIAL IV ONE (04:00)
[2016-11-14 06:33] VITALS: BP 117/69
[2016-11-14 08:49] VITALS: BP 121/70
--- NOTE | 2016-11-14 09:05 | REP ---
Limited OB sonography: History: Cervical shortening. Check cervical length. Findings: Transvaginal scanning demonstrates a cephalic fetus. heart rate is recorded at 141 beats per minute. Anterior placenta is seen. There is no evidence of previa. Closed cervical length is measured at 3.0 cm transvaginally. No funneling is identified. Signed by Jos Jain MD 11/14/2016 12:07 P
[2016-11-14 09:24] LABS: MEAN CORPUSCULAR HEMOGLOBIN 31.1 pg (27.0-33.0); MEAN CORPUSCULAR VOLUME 94.4 fl (80.0-96.0); RED CELL DISTRIBUTION WIDTH 12.5 % (11.5-14.5); WHITE BLOOD COUNT 11.2 K/mm3 (4.0-10.0)
[2016-11-14] MEDS ORDERED: CYCLOBENZAPRINE 10 MG TAB PO ONE (09:30)
[2016-11-14] MEDS ORDERED: BUTORPHANOL 2 MG/ML INJ (J0595) IV ONE (11:45)
[2016-11-14] MEDS ORDERED: PROMETHAZINE INJ 25 MG/ML VIAL (J2550) IV ONE (11:45)
[2016-11-14 16:01] VITALS: BP 118/67
[2016-11-14 22:24] VITALS: BP 135/84
[2016-11-15] MEDS ORDERED: NORC1TAB4 PO (08:28)
== END 2016-11-14 16:20 | disposition home or self-care (01) ==
LOC: M LDO 21:18
PROVIDERS: ATTEND Obstetrics & Gynecology
DX: O26.872 Cervical shortening, second trimester (principal); Z3A.20 20 weeks gestation of pregnancy; O09.293 Supervision of pregnancy with other poor reproductive or obstetric history, third trimester; Z88.8 Allergy status to other drugs, medicaments and biological substances
CPT/HCPCS: 36415; 76817; 81001; 85027; 86850; 86900; 86901; 87086; J0595

== ENCOUNTER 2016-11-14 22:12 | Outpatient (CLI) | payer OTHER ==
[2016-11-14 22:30] VITALS: BP 115/73
[2016-11-14] MEDS ORDERED: BUTORPHANOL 2 MG/ML INJ (J0595) IV ONE (23:30)
[2016-11-14] MEDS ORDERED: PROMETHAZINE INJ 25 MG/ML VIAL (J2550) IV ONE (23:30)
[2016-11-15 00:15] VITALS: BP 115/73
[2016-11-15 04:00] VITALS: BP 116/62
[2016-11-15 07:44] VITALS: BP 126/63
[2016-11-15] MEDS ORDERED: NORC1TAB4 PO (08:28)
[2016-11-15] MEDS ORDERED: NORCO, ANEXSIA 5/325MG TABLET (HYDROcodone/ACETAMINOPHEN) PO PRN (08:30)
[2016-11-15] MEDS ORDERED: busPIRone 5 MG TAB PO SCH (09:00)
[2016-11-15] MEDS ORDERED: buPROPion (WELLBUTRIN SR) 100 MG SR TAB PO SCH (09:00)
[2016-11-15 12:53] VITALS: BP 116/58
== END 2016-11-15 13:08 | disposition home or self-care (01) ==
LOC: M LDO 22:12
PROVIDERS: ATTEND Advanced Practice Midwife
DX: O99.89 Other specified diseases and conditions complicating pregnancy, childbirth and the puerperium (principal); M46.1 Sacroiliitis, not elsewhere classified; M62.059 Separation of muscle (nontraumatic), unspecified thigh; Z3A.20 20 weeks gestation of pregnancy
CPT/HCPCS: 59025; J0595

== ENCOUNTER → 2016-11-24 | Outpatient (CLI) | payer OTHER ==
[~2016-11-24] MED LIST: NORC1TAB4 PO
--- NOTE | 2016-11-24 20:20 | REP ---
Clinical: Anatomical evaluation. Comparison: 11/14/2016 . Findings: Examination demonstrates a single live intrauterine in cephalic presentation. motion is identified by technologist. Placenta is noted anteriorly and grade zero without evidence for placenta previa or abruption. Amniotic fluid volume is normal. Cervix measures 3.5 cm in length and appears closed. Nuchal cord noted. Gestational age by LMP 21 weeks 4 days with RADHA 04/02/1972 . Gestational age by current measurements 21 weeks 5-day with RADHA 03/08 02:17 . FHR equals 147 beats per minute. Estimated weight 484 grams ( 81st percentile). Anatomical assessment demonstrates normal structures including cranium, choroid plexus, cavum, cerebellum/posterior fossa, facial features, lungs, four-chamber heart/ventricular outflow tracts, diaphragm, stomach, cord insertion/three-vessel cord, kidneys/bladder, spine, and extremities. Impression: 1. Single live intrauterine in cephalic presentation demonstrating appropriate interval growth. 2. Anatomical assessment is complete and normal. No gross abnormalities are identified. 3. Nuchal cord noted. Signed by Darrell Diaz MD 11/24/2016 04:30 P
== END ==
LOC: M SMT 08:53
PROVIDERS: ATTEND Specialist
DX: Z36 Encounter for antenatal screening of mother (principal); Z3A.21 21 weeks gestation of pregnancy

== ENCOUNTER → 2016-12-09 | Outpatient (CLI) | payer OTHER ==
[2016-12-09 13:36] LABS: BASO % 0.4 % (0.0-1.0); EOS # 0.2 K/mm3 (0.0-0.50); EOS % 1.2 % (0.0-3.0); LARGE UNSTAINED CELL # 0.1 K/mm3 (0.0-0.4); LARGE UNSTAINED CELL % 0.8 % (0.0-4.0); LYMPH # 1.7 K/mm3 (1.5-6.5); LYMPH % 13.2 % (24.0-44.0); MEAN CORPUSCULAR HEMOGLOBIN 32.6 pg (27.0-33.0); MEAN CORPUSCULAR HGB CONC 34.2 g/dl (32.0-36.5); MEAN CORPUSCULAR VOLUME 95.3 fl (80.0-96.0); MONO # 0.4 K/mm3 (0.0-0.8); MONO % 3.4 % (0.0-5.0); PLATELET COUNT, AUTOMATED 212 k/mm3 (150-450); RED CELL DISTRIBUTION WIDTH 12.5 % (11.5-14.5); WHITE BLOOD COUNT 12.4 K/mm3 (4.0-10.0)
[2016-12-09 13:57] LABS: THYROXINE (T4) 13.8 UG/DL (4.5-12.0)
== END ==
LOC: M SMT 10:15
PROVIDERS: ATTEND Advanced Practice Midwife
DX: R53.83 Other fatigue (principal)

== ENCOUNTER → 2016-12-12 | Outpatient (REF) | payer OTHER ==
[2016-12-12 13:26] LABS: CONTROL LINE MONO INT CTR LINE PRESENT
[2016-12-12 14:05] LABS: MEAN CORPUSCULAR HEMOGLOBIN 32.7 pg (27.0-33.0); MEAN CORPUSCULAR HGB CONC 34.2 g/dl (32.0-36.5); MEAN CORPUSCULAR VOLUME 95.6 fl (80.0-96.0); RED CELL DISTRIBUTION WIDTH 12.4 % (11.5-14.5); WHITE BLOOD COUNT 11.7 K/mm3 (4.0-10.0)
[2016-12-12 14:14] LABS: REASON FOR REVIEW OTHER
[2016-12-12 14:20] LABS: BANDS 3 % (< 11); BASOPHILS 1 % (0-4); EOSINOPHILS 5 % (0-5)
[2016-12-14 00:07] LABS: Lyme Disease IgG/IgM Antibodie <0.91 ISR (0.00-0.90); Lyme Disease IgM Ab Quantitati <0.80 index (0.00-0.79)
== END ==
LOC: M SFHCLERA 11:19
PROVIDERS: ATTEND Family Medicine
DX: R53.83 Other fatigue (principal)

== ENCOUNTER → 2016-12-27 | Outpatient (CLI) | payer OTHER ==
[~2016-12-27] MED LIST changes: +PRENTAB9 PO
[2016-12-27 13:23] LABS: MEAN CORPUSCULAR VOLUME 97.1 fl (80.0-96.0); RED CELL DISTRIBUTION WIDTH 12.4 % (11.5-14.5); WHITE BLOOD COUNT 13.9 K/mm3 (4.0-10.0)
[2016-12-27 13:41] LABS: ALBUMIN 3.1 GM/DL (3.2-5.2); ALBUMIN/GLOBULIN RATIO 0.84 (1.00-1.93); ALKALINE PHOSPHATASE 56 U/L (45-117); ALT/SGPT 18 U/L (12-78); AMYLASE 42 U/L (25-115); AST/SGOT 16 U/L (15-37); BILIRUBIN,DIRECT < 0.1 MG/DL (0.0-0.2); BILIRUBIN,TOTAL 0.2 MG/DL (0.2-1.0); TOTAL PROTEIN 6.8 GM/DL (6.4-8.2)
== END ==
LOC: M SMT 10:50
PROVIDERS: ATTEND Advanced Practice Midwife
DX: R10.10 Upper abdominal pain, unspecified (principal)

== ENCOUNTER 2016-12-28 17:41 | Outpatient (CLI) | payer OTHER ==
[~2016-12-28] VITALS: Ht 167.6 cm; Wt 94.0 kg
[~2016-12-28 17:41] MED LIST changes: -PRENTAB9 PO
[2016-12-28 17:56] VITALS: BP 111/72
[2016-12-28] MEDS ORDERED: LR 1,000 ML IV ONE (18:15)
[2016-12-28] MEDS ORDERED: PROMETHAZINE INJ 25 MG/ML VIAL (J2550) IV PRN (18:15)
[2016-12-28] MEDS ORDERED: LR 1,000 ML IV SCH (18:15)
[2016-12-28] MEDS ORDERED: PRENTAB9 PO (18:48)
[2016-12-28] MEDS ORDERED: MVI -ADULT INJECTION 10 ML VIAL IV ONE (20:00)
== END 2016-12-28 21:50 ==
LOC: M LDO 17:41
PROVIDERS: ATTEND Advanced Practice Midwife
DX: O26.892 Other specified pregnancy related conditions, second trimester (principal); O21.9 Vomiting of pregnancy, unspecified; Z3A.26 26 weeks gestation of pregnancy; Z88.8 Allergy status to other drugs, medicaments and biological substances

== ENCOUNTER → 2017-01-05 | Outpatient (CLI) | payer OTHER ==
[~2017-01-05] MED LIST changes: +PRENTAB9 PO
[2017-01-05 17:48] LABS: MEAN CORPUSCULAR HEMOGLOBIN 32.6 pg (27.0-33.0); MEAN CORPUSCULAR HGB CONC 33.4 g/dl (32.0-36.5); MEAN CORPUSCULAR VOLUME 97.4 fl (80.0-96.0); RED CELL DISTRIBUTION WIDTH 12.4 % (11.5-14.5)
[2017-01-06 08:41] LABS: WHITE BLOOD COUNT 11.8 K/mm3 (4.0-10.0)
== END ==
LOC: M LRY 10:24
PROVIDERS: ATTEND Obstetrics & Gynecology
DX: Z34.82 Encounter for supervision of other normal pregnancy, second trimester (principal)

== ENCOUNTER 2017-02-10 18:21 | Outpatient (CLI) | payer OTHER ==
[~2017-02-10] VITALS: Ht 167.6 cm; Wt 100.0 kg
[2017-02-10 18:32] VITALS: BP 119/67
[2017-02-10 18:41] VITALS: BP 111/74
== END 2017-02-10 20:00 | disposition home or self-care (01) ==
LOC: M LDO 18:21
PROVIDERS: ATTEND Obstetrics & Gynecology
DX: Z34.83 Encounter for supervision of other normal pregnancy, third trimester (principal); Z3A.33 33 weeks gestation of pregnancy; Z88.8 Allergy status to other drugs, medicaments and biological substances

== ENCOUNTER 2017-02-24 02:48 | Inpatient (IN) | payer OTHER ==
[2017-02-24] VITALS (12 sets, daily range): BP systolic 109–145; BP diastolic 71–94
[~2017-02-24] VITALS: Ht 167.6 cm; Wt 100.0 kg
[2017-02-24] MEDS ORDERED: ACETAMINOPHEN 500 MG TAB PO ONE (05:45)
[2017-02-24] MEDS ORDERED: PENICILLIN G POTASSIUM IV 5 MU in D5W MINI-BAG PLUS 100 ML IV ONE (07:30)
[2017-02-24] MEDS: BETAMETHASONE SOLUSPAN 6MG/ML INJ 5ML (J0702) IM SCH (07:54)
[2017-02-24 07:57] LABS: MEAN CORPUSCULAR HEMOGLOBIN 32.6 pg (27.0-33.0); MEAN CORPUSCULAR HGB CONC 34.7 g/dl (32.0-36.5); MEAN CORPUSCULAR VOLUME 94.1 fl (80.0-96.0); RED CELL DISTRIBUTION WIDTH 12.5 % (11.5-14.5); WHITE BLOOD COUNT 13.2 K/mm3 (4.0-10.0)
--- NOTE | 2017-02-24 08:21 | HPE ---
DATE OF ADMISSION: 02/24/2017 REASON FOR ADMISSION: labor. HISTORY OF PRESENT ILLNESS: Ms. Brice is a 21-year-old 3, para 0 who presents at 34 weeks 5 days estimated gestational age (EGA) by last menstrual period (LMP) confirmed by first trimester ultrasound with complaints of contractions and lower back pain. Her course has been unremarkable. She initiated care in her first trimester and has been appropriate throughout. She reports waking up throughout the night with increasing abdominal pain and lower back pain. She denied any vaginal bleeding or leakage or fluid. She reports active movement. PAST MEDICAL HISTORY: Anxiety and depression. PAST SURGICAL HISTORY: She has had a cholecystectomy. Appendectomy. PAST OBSTETRICAL HISTORY: She is a 3, para 0. She has had a first trimester miscarriage as well as a second trimester termination at 23 weeks. MEDICATIONS: - vitamins ALLERGIES: 1. GABAPENTIN. 2. EFFEXOR. SOCIAL HISTORY: Denies any alcohol, tobacco or drug use during her . PHYSICAL EXAMINATION: Her vital signs are stable. She is afebrile. She has a category 1 heart tracing with contractions on tocometer. GENERAL APPEARANCE: Well appearing, in no acute distress. LUNGS: Clear to auscultation bilaterally. CARDIOVASCULAR: Heart regular rate and rhythm. ABDOMEN: Gravid, nontender. On her initial cervical exam, her cervix was found to be closed, long and station was -3. Ms. Brice was reassessed approximately 3 hours later and was found to be 2 cm dilated, 50% effaced and -3 station. A bedside ultrasound was performed demonstrating fetus in cephalic presentation. LABORATORIES: Blood type is A positive. Antibody screen was negative. Rubella immune. RPR nonreactive. Hepatitis surface antigen is negative. HIV is negative. Hepatitis C is nonreactive. Chlamydia and gonorrhea screens were negative. She had a normal 1 hour Glucola. Group B Streptococcus (GBS) is unknown. ASSESSMENT: 1. Ms. Brice is a 21-year-old 3, para 0 at 34 weeks 5 days estimated gestational age (EGA) in labor. 2. Reassuring status. 3. GBS unknown status. PLAN: 1. Admit to labor and delivery. CBC, RPR, type and screen. 2. fibronectin as well as GBS has been collected and sent. 3. Patient has been thoroughly counseled in regards to her diagnosis. I have discussed medications, procedures performed and labor and delivery. I have reviewed recommendations for steroids for lung maturity as well as potential tocolysis. All her questions have been answered and she desires to proceed with admission.
[2017-02-24] MEDS: PENICILLIN G POTASSIUM IV 2.5 MU in D5W 100 ML IV SCH ×3 (11:46→20:09)
[2017-02-24] MEDS: LR 1,000 ML IV SCH ×2 (11:46→20:09)
[2017-02-24] MEDS ORDERED: PROMETHAZINE INJ 25 MG/ML VIAL (J2550) IV ONE ×2 (12:45→22:00)
[2017-02-24] MEDS ORDERED: BUTORPHANOL 2 MG/ML INJ (J0595) IV ONE ×2 (12:45→22:00)
--- NOTE | 2017-02-24 18:25 | IPNPDOC ---
Text Note Date of Service The patient was seen on 02/24/17 at 1740. NOTE Subjective: Patient reports feeling increased vaginal pressure and is starting to feel pain in her back when she has a contraction. Objective: Vital signs: see below. heart rate 145, moderate variability, positive accelerations, no decelerations. Contractions are spaced out. Contractions are more than 10 minutes apart. SVE: 3/75/-3. Assessment: IUP at 34.5 weeks' gestation, labor, category 1 heart rate tracing Plan: Continue with GBS prophylaxis. Patient to receive next dose of betamethasone at 0800 on 02/25/2017. Given that the patient has very few and infrequent contractions we will continue with the plan of care, which is GBS prophylaxis and betamethasone. Patient is to advise nursing staff if she becomes more uncomfortable. Regular diet ordered for patient. Sequentials have been ordered for patient while she is in bed. Dr. Richardson is aware of plan of care. VS,Fishbone, I+O VS, Fishbone, I+O Laboratory Tests 02/24/17 07:41 Red Blood Count 4.00, Mean Corpuscular Volume 94.1, Mean Corpuscular Hemoglobin 32.6, Mean Corpuscular Hemoglobin Concent 34.7, Red Cell Distribution Width 12.5 Vital Signs Date Time Temp Pulse Resp B/P (MAP) Pulse Ox O2 Delivery O2 Flow Rate FiO2 02/24/17 15:18 97.9 101 18 125/75 (92) COLLINS KWOK CNM Feb 24, 2017 18:25
[2017-02-25] VITALS (9 sets, daily range): BP systolic 119–147; BP diastolic 57–81
[2017-02-25] MEDS: PENICILLIN G POTASSIUM IV 2.5 MU in D5W 100 ML IV SCH ×7 (00:03→23:45)
[2017-02-25] MEDS ORDERED: MORPHINE 10 MG/ML 1ML VIAL IV ONE (05:00)
[2017-02-25] MEDS ORDERED: LR 1,000 ML IV ONE (05:00)
[2017-02-25] MEDS ORDERED: PROMETHAZINE INJ 25 MG/ML VIAL (J2550) IV ONE (05:00)
[2017-02-25] MEDS ORDERED: MORPHINE 10 MG/ML 1ML VIAL SC ONE (05:00)
[2017-02-25] MEDS ORDERED: TERBUTALINE SULFATE 1 MG/ML VIAL (J3105) SC ONE (05:15)
[2017-02-25] MEDS: LR 1,000 ML IV SCH ×3 (05:30→19:00)
[2017-02-25] MEDS: BETAMETHASONE SOLUSPAN 6MG/ML INJ 5ML (J0702) IM SCH (07:50)
[2017-02-25] MEDS: metroNIDAZOLE (FLAGYL) 500 MG TAB PO SCH ×2 (11:11→20:24)
--- NOTE | 2017-02-25 12:39 | IPNPDOC ---
Text Note Date of Service The patient was seen on 02/25/17 at 1015. NOTE Subjective: Patient reports cramping and constant dull back pain. Report both increase and become more painful at times. She reports that her pain is worse at night. She reports her pain a 4/10. States she doesn't tolerate pain very well. She received morphine and pheneragan for pain management last night, which allowed her to sleep. She was given a dose of terbutaline due to uterine irritability, but only occasional contractions at 0500 after discussing plan of care with Dr. Richardson. Reports active movement. Denies leaking of fluid or vaginal bleeding. Objective: VS: see below. 2nd dose of betamethasone received. Patient is beta complete. Sterile speculum exam done: cervix appears normal. No bulging membranes noted. A large amount of thick, white discharge noted in vaginal canal and adherent to vaginal wall. Wet prep done. pH is 4.5, whiff test is moderate for foul odor, moderate amount of clue cells noted along with white blood cells. SVE: no change from 17 hours ago: 3/75/-3, posterior, soft, no show. FHR: Assessment: IUP at 34.6 weeks gestation, not in active labor, betamethasone complete, GBS unknown, Category I FHR tracing. Plan: Patient to be treated for acute vaginitis with Flagyl. Dr. Richardson notified of findings. He recommends patient to stay for observation until tomorrow morning. Will continue with GBS prophylaxis. Consider discharge tomorrow if no cervical change. Patient and family aware of plan. She can continue with a regular diet at this time and she may shower. VS,Fishbone, I+O VS, Fishbone, I+O Vital Signs Date Time Temp Pulse Resp B/P (MAP) Pulse Ox O2 Delivery O2 Flow Rate FiO2 02/25/17 07:22 111 119/57 (77) 02/25/17 07:21 97.7 18 I&O- Last 24 Hours up to 6 AM 02/25/17 06:00 Intake Total 1585 ml Output Total 1050 ml Balance 535 ml Item Value Date Time Fibronectin NEGATIVE 02/24/17 0600 COLLINS KWOK CNM Feb 25, 2017 12:39
[2017-02-25] MEDS ORDERED: hydrOXYzine 50 MG TAB PO SCH (21:00)
[2017-02-26] MEDS ORDERED: PROMETHAZINE INJ 25 MG/ML VIAL (J2550) IV ONE (01:30)
[2017-02-26] MEDS ORDERED: MORPHINE 10 MG/ML 1ML VIAL IV ONE (01:30)
[2017-02-26] MEDS ORDERED: MORPHINE 10 MG/ML 1ML VIAL SC ONE (01:30)
[2017-02-26] MEDS: LR 1,000 ML IV SCH ×2 (03:00→08:07)
[2017-02-26] MEDS: PENICILLIN G POTASSIUM IV 2.5 MU in D5W 100 ML IV SCH ×2 (04:00→08:07)
[2017-02-26 06:17] VITALS: BP 118/55
[2017-02-26 06:20] VITALS: BP 118/55
[2017-02-26] MEDS: metroNIDAZOLE (FLAGYL) 500 MG TAB PO SCH (08:07)
[2017-02-26 08:35] LABS: MEAN CORPUSCULAR HEMOGLOBIN 32.8 pg (27.0-33.0); MEAN CORPUSCULAR HGB CONC 34.5 g/dl (32.0-36.5); RED CELL DISTRIBUTION WIDTH 12.5 % (11.5-14.5); WHITE BLOOD COUNT 13.5 K/mm3 (4.0-10.0)
[2017-02-26 08:53] LABS: ALT/SGPT 13 U/L (12-78); AST/SGOT 9 U/L (15-37); BILIRUBIN,TOTAL 0.2 MG/DL (0.2-1.0); CREATININE FOR GFR 0.45 MG/DL (0.55-1.02); GLOMERULAR FILTRATION RATE > 60.0 (>60); URIC ACID 3.6 MG/DL (2.6-6.0)
[2017-02-26 09:23] VITALS: BP 118/76
[2017-02-26] MEDS ORDERED: NORC1TAB4 PO (09:32)
[2017-02-26] MEDS ORDERED: FLAG500T PO (09:32)
--- NOTE | 2017-02-26 10:42 | DS.PDOC ---
Discharge Summary General Date of Admission Feb 24, 2017 at 07:10 Date of Discharge February 26, 2017. Attending Physician: COLLINS KWOK CNM Discharge Summary PROCEDURES PERFORMED DURING STAY: None. ADMITTING DIAGNOSES: 1. IUP at 34.5 weeks gestation. 2. labor. 3. GBS unknown. DISCHARGE DIAGNOSES: 1. IUP at 35 weeks gestation 2. Not in active labor. 3. Gestational hypertension 4. GBS negative 5. Acute vaginitis-bacterial vaginosis COMPLICATIONS/CHIEF COMPLAINT: Pre Term Labor. HISTORY OF PRESENT ILLNESS: Patient is a 21-year-old female who is a at 35 weeks gestation. She presented to labor and delivery with complaints of contractions a low back pain and was found to be closed and thick. Upon reexamination she was found to be 2 cm dilated. GBS was obtained, GBS prophylaxis started, betamethasone given. Another vaginal exam was done on the at 5 PM and she was found to be 3/75/-3, posterior, no show. 17 hours after that exam on the , she was reassessed again and found to be unchanged. This morning, 24 hours after last vaginal exam was done, cervix is 3/ 80/-2, posterior, no show. Patient denies feeling contractions but complains of constant back pain. 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 Patient reports her pain is better during the day but in the evening and night it gets worse. Patient also reports that she has no pain tolerance. She has also been diagnosed with anxiety. At night patient has been unable to sleep, crying, and unconsolable. She was given a K pad, had a massage , used the birthing ball at the side of the bed, taken showers, her bed was changed to a bed, and nothing provided her with relief at night. Patient given morphine rest for 2 nights, which helped her pain, anxiety, and she was able to sleep. At night when patient was more anxious and crying her blood pressures were increased. A random protein and creatinine ratio was done and found to be 0.27. Preeclamptic labs also done this morning and found to be all normal. Patient denies having headache, visual changes, or epigastric pain. Patient has had a category 1 heart rate tracing during her entire stay. She was having irregular contractions that were spaced out. Her contractions were more than 10 minutes apart. DISCHARGE MEDICATIONS: Please see below. ALLERGIES: Please see below. PHYSICAL EXAMINATION ON DISCHARGE: VITAL SIGNS: Please see below. GENERAL: Alert and oriented. She appears to be uncomfortable at times. RESPIRATORY EXAMINATION: Regular rate. No use of accessory muscles. ABDOMINAL EXAMINATION: Gravid. Soft on palpation. Nontender to touch. EXTREMITIES: Bilateral lower extremities with generalized edema. No pitting. LABORATORY DATA: Please see below. ACTIVITY: As tolerated. DIET: Regular. DISCHARGE INSTRUCTIONS: 1. Patient discharged to home. She is to follow-up in the office this week.. 2. Diagnosis of gestational hypertension reviewed with patient. Reviewed signs and symptoms of preeclampsia with patient. Patient is encouraged to notify providers if she has any signs or symptoms of preeclampsia. 3. Reviewed access to care, labor signs and symptoms, danger signs, and decreased movement. Patient is to notify providers if there is a change and she has any of these signs or symptoms. 4. Reviewed comfort measures for back pain with patient. Vicodin sent to pharmacy along with Flagyl. DISCHARGE CONDITION: Stable. Vital Signs/I&Os Vital Signs Date Time Temp Pulse Resp B/P (MAP) Pulse Ox O2 Delivery O2 Flow Rate FiO2 02/26/17 09:23 97.8 96 18 118/76 (90) Vital Signs Label Value Date Time Blood Pressure Assessment 145/94 (111) 02/24/17 1915 Source Automatic Cuff (NIBP) Blood Pressure Assessment 147/81 (103) 02/25/17 0430 Source Automatic Cuff (NIBP) Blood Pressure Assessment 121/74 (90) 02/25/17 0518 Source Automatic Cuff (NIBP) Blood Pressure Assessment 119/57 (77) 02/25/17 0722 Source Automatic Cuff (NIBP) Blood Pressure Assessment 147/75 (99) 02/25/17 1925 Source Automatic Cuff (NIBP) Patient Temperature 98.7 degrees F 02/26/17 0620 Temperature Source Tympanic 02/26/17 0620 Pulse 111 02/26/17 0620 Respiratory Rate 14 bpm 02/26/17 0620 Blood Pressure Assessment 118/55 (76) 02/26/17 0620 Source Automatic Cuff (NIBP) I&O- Last 24 Hours up to 6 AM 02/26/17 06:00 Intake Total 1000 ml Output Total 2550 ml Balance -1550 ml Laboratory Data Labs 24H Laboratory Tests 2 02/25/17 13:29: Urine Appearance CLOUDYH, Urine Color YELLOW, Urine pH 7.0, Urine Specific [place] 1.012, Urine Protein NEGATIVE, Urine Glucose (UA) 1+H, Urine Ketones NEGATIVE, Urine Urobilinogen 0.2, Urine Bilirubin NEGATIVE, Urine Leukocyte Esterase 2+H, Urine Blood NEGATIVE, Urine Nitrite NEGATIVE, Urine WBC (Auto) 11H , Urine RBC (Auto) 2, Urine Hyaline Casts (Auto) 0, Urine Bacteria (Auto) 1+H, Urine Squamous Epithelial Cells 12, Urine Amorphous Sediment SMALLH, Urine Mucus (Auto) SMALL, Urine Sperm (Auto) 02/26/17 01:25: Urine Random Creatinine 29.4, Urine Random Total Protein 8.1 02/26/17 08:21: Glomerular Filtration Rate > 60.0, Creatinine 0.45L, Aspartate Amino Transf (AST /SGOT) 9L, Alanine Aminotransferase (ALT/SGPT) 13, Lactate Dehydrogenase 124, Total Bilirubin 0.2, Uric Acid 3.6 Item Value Date Time Creatinine 0.45 MG/DL L 02/26/17 0821 Glomerular Filtration Rate > 60.0 02/26/17 0821 Uric Acid 3.6 MG/DL 02/26/17 0821 Total Bilirubin 0.2 MG/DL 02/26/1721 Aspartate Amino Transf (AST/SGOT) 9 U/L L 02/26/17 0821 Alanine Aminotransferase (ALT/SGPT) 13 U/L 02/26/17 0821 Lactate Dehydrogenase 124 U/L 02/26/17 0821 Item Value Date Time Urine Random Creatinine 29.4 MG/DL 02/26/175 Urine Random Total Protein 8.1 MG/DL 02/26/17 0125 CBC/BMP Laboratory Tests 02/26/17 08:21 Red Blood Count 3.49 L, Mean Corpuscular Volume 95.0, Mean Corpuscular Hemoglobin 32.8, Mean Corpuscular Hemoglobin Concent 34.5, Red Cell Distribution Width 12.5, Aspartate Amino Transf (AST/SGOT) 9 L, Alanine Aminotransferase (ALT/SGPT) 13, Lactate Dehydrogenase 124, Total Bilirubin 0.2, Uric Acid 3.6 Microbiology Microbiology 02/24/17 Group B Streptococcus Screen (ALEJANDRO) - Final, Complete SPEC #: [id number] PAMELA: 02/24/17 STATUS: COMP REQ #: [id number] RECD: 02/24/[address]: CAPRI MCCLOUD MD. SOURCE: VAGINAL ENTR: 02/24/[address]: TIFFANIEC: COMP: 02/26/17-728 ORDERED: GBS CULT ACT WKST: OLD 02/26/17 #1 Procedure Result Site DEPARTMENT OF MICROBIOLOGY ROUTINE CULTURE RESULTS GROUP B STREP CULTURE Final FULL REPORT IN LAB NOTES ([facility] and [facility]). NEGATIVE FOR STREP AGALACTIAE (GROUP B) 02/25/17 Urine Culture - Final, Complete ROUTINE CULTURE RESULTS URINE CULTURE Final FULL REPORT IN LAB NOTES ([facility] and [facility]). NO GROWTH Discharge Medications Scheduled Metronidazole (Flagyl) 500 Mg Tab, 500 MG PO BID Multivitamins/ ( 27-0.8 mg) 1 Tab Tab, 1 TAB PO DAILY, (Reported ) Scheduled PRN Acetaminophen/Hydrocodone ([place] 5-325 mg) 1 Tab Tab, 1-2 TAB PO Q6HP PRN for PAIN Allergies Coded Allergies: Gabapentin (Verified Allergy, Severe, TONGUE SWELLS, JAW LOCKS, 11/13/16) Venlafaxine (Verified Allergy, Severe, TONGUE SWELLING, JAW LOCKED, ) COLLINS KWOK CNM Feb 26, 2017 10:42
== END 2017-02-26 10:10 | disposition home or self-care (01) | DRG 778 ==
LOC: M LDO 02:48 → M LDI 07:10
PROVIDERS: ADMIT Obstetrics & Gynecology; ATTEND Obstetrics & Gynecology
DX: O60.03 Preterm labor without delivery, third trimester (principal); O23.93 Unspecified genitourinary tract infection in pregnancy, third trimester; O13.3 Gestational [pregnancy-induced] hypertension without significant proteinuria, third trimester; Z90.49 Acquired absence of other specified parts of digestive tract; Z79.899 Other long term (current) drug therapy; Z88.8 Allergy status to other drugs, medicaments and biological substances; Z3A.34 34 weeks gestation of pregnancy

== ENCOUNTER 2017-03-01 03:09 | Outpatient (CLI) | payer OTHER ==
[~2017-03-01 03:09] MED LIST changes: +FLAG500T PO
[2017-03-01 03:23] VITALS: BP 119/75
== END 2017-03-01 04:44 | disposition home or self-care (01) ==
LOC: M LDO 03:09
PROVIDERS: ATTEND Obstetrics & Gynecology
DX: O36.8130 Decreased fetal movements, third trimester, not applicable or unspecified (principal); Z3A.35 35 weeks gestation of pregnancy; Z88.8 Allergy status to other drugs, medicaments and biological substances

== ENCOUNTER 2017-03-12 07:03 | Outpatient (CLI) | payer OTHER ==
[~2017-03-12] VITALS: Ht 167.6 cm; Wt 100.0 kg
[2017-03-12 07:20] VITALS: BP 129/55
== END 2017-03-12 09:39 | disposition home or self-care (01) ==
LOC: M LDO 07:03
PROVIDERS: ATTEND Obstetrics & Gynecology
DX: O47.1 False labor at or after 37 completed weeks of gestation (principal); Z3A.37 37 weeks gestation of pregnancy; Z88.8 Allergy status to other drugs, medicaments and biological substances

== ENCOUNTER 2017-03-26 07:44 | Inpatient (IN) | payer OTHER ==
[2017-03-26] VITALS (47 sets, daily range): BP systolic 110–156; BP diastolic 55–88
[~2017-03-26] VITALS: Ht 167.6 cm; Wt 102.0 kg
[2017-03-26] MEDS ORDERED: LR 1,000 ML IV SCH (08:34)
[2017-03-26] MEDS ORDERED: OXYTOCIN DRIP 30 UNITS in APPROPRIATE DILUENT 1 EA IV SCH ×2 (08:45→22:59)
[2017-03-26 09:39] LABS: MEAN CORPUSCULAR HEMOGLOBIN 32.4 pg (27.0-33.0); MEAN CORPUSCULAR HGB CONC 34.4 g/dl (32.0-36.5); MEAN CORPUSCULAR VOLUME 94.3 fl (80.0-96.0); RED CELL DISTRIBUTION WIDTH 12.7 % (11.5-14.5); WHITE BLOOD COUNT 11.6 K/mm3 (4.0-10.0)
[2017-03-26] MEDS ORDERED: FENTANYL 2MCG/ML ROPIVACAINE 0.2% IN 0.9% NACL 200ML IVBAG As Ordered ONE (11:28)
[2017-03-26] MEDS ORDERED: NALOXONE INJ 0.4 MG/1 ML VIAL (J2310) IV PRN (12:30)
[2017-03-26] MEDS ORDERED: EPIDURAL/PCA KEYS XX PRN (12:30)
[2017-03-26] MEDS ORDERED: diphenhydrAMINE INJ 50MG/ML VIAL (J1200) IV PRN (12:30)
[2017-03-26] MEDS ORDERED: REFRIGERATOR IV KEYS XX PRN (12:30)
[2017-03-26] MEDS ORDERED: ePHEDrine SULFATE 25 MG/5 ML(5MG/ML) SYRINGE IV PRN (12:30)
[2017-03-26] MEDS ORDERED: ONDANSETRON 4MG/2ML VIAL (J2405) IV PRN (12:30)
[2017-03-26] MEDS ORDERED: FENTANYL/ROPIVACAINE/NACL BAG 200 ML EPIDURAL SCH (12:30)
[2017-03-26] MEDS ORDERED: LACTATED RINGER'S 1000 ML IV PRN (12:30)
[2017-03-26] MEDS ORDERED: EPIDURAL COMMENT XX SCH (12:30)
--- NOTE | 2017-03-26 15:42 | HPE ---
DATE OF ADMISSION: 03/26/2017 REASON FOR ADMISSION: Induction of labor. HISTORY OF PRESENT ILLNESS: Mrs. Brice is a 22-year-old 3, para zero, who presents at 39 weeks and zero days estimated gestational age by her last menstrual period confirmed by first-trimester ultrasound, here for an elective induction of labor. Her course has been remarkable for management of labor. At approximately 34 weeks, she presented with contractions, and she had cervical dilation of 3 cm. She completed a course of steroids. She has remained stable and was ultimately discharged home. Otherwise, her course has been unremarkable. She initiated care in her first trimester and has been appropriate throughout. PAST MEDICAL HISTORY: History of anxiety and depression. PAST SURGICAL HISTORY: She has had cholecystectomy, as well as appendectomy. PAST OBSTETRICAL HISTORY: She is a 3 and para zero. She has had a first-trimester miscarriage and had a termination at 23 weeks secondary to fetus with Dandy-Walker syndrome. MEDICATIONS: vitamins. ALLERGIES: 1. GABAPENTIN. 2. EFFEXOR. SOCIAL HISTORY: She denies any alcohol, tobacco or drug use. PHYSICAL EXAMINATION: VITAL SIGNS: Stable. She is afebrile. GENERAL APPEARANCE: Is well appearing, in no acute distress. She has a category one heart tracing with irregular contractions on tocometer. LUNGS: Clear to auscultation bilaterally. CARDIOVASCULAR: Heart regular rate and rhythm. ABDOMEN: Gravid, nontender. Estimated weight (EFW) 3600 grams. CERVICAL EXAM: She was 3 cm dilated, 80% effaced, -1 station. LABORATORY DATA: Her blood type is A positive. Antibody screen negative. Rubella is immune. RPR is nonreactive. Hepatitis surface antigen is negative. HIV negative. Hepatitis C is nonreactive. Chlamydia and gonorrhea screens were negative. She had a normal [place]. She had a normal one-hour Glucola. She is GBS negative. ASSESSMENT: 1. Mrs. Brice is a 22-year-old 3, para zero at 39 weeks and zero days estimated gestational age by last menstrual period confirmed by first trimester ultrasound, here for elective induction of labor. 2. Reassuring status. PLAN: 1. Admit to labor and delivery. Complete blood count (CBC), rapid plasma reagin (RPR), type and screen. 2. I have thoroughly counseled the patient with regard to induction of labor. We discussed medications as well as procedures performed in labor and delivery. She has been operatively consented for emergency surgery, blood products and anesthesia, and desires to proceed with admission. 3. We will initiate her induction of labor with Pitocin. 4. The patient is a good candidate for an epidural. 5. Anticipate spontaneous vaginal delivery.
[2017-03-26] MEDS ORDERED: ACETAMINOPHEN 500 MG TAB PO PRN (19:15)
[2017-03-26] MEDS ORDERED: miSOPROStol 200 MCG TAB (S0191) PR ONE (23:00)
[2017-03-26] MEDS ORDERED: MOM 30ML SUSPENSION UDC PO PRN (23:00)
[2017-03-26] MEDS ORDERED: RHOGAM 300 MCG (1500 IU) INJ (J2790) IM SCH (23:00)
[2017-03-26] MEDS ORDERED: DIBUCAINE 1% OINTMENT 30GM TOP PRN (23:00)
[2017-03-26] MEDS ORDERED: MEASLES,MUMPS,RUBELLA VACCINE INJ (MMR-II) (90707) SC SCH (23:00)
[2017-03-26] MEDS ORDERED: METHYLERGONOVINE MALEATE 0.2 MG TAB PO PRN (23:00)
[2017-03-26] MEDS ORDERED: DOCUSATE SODIUM 100 MG CAP PO PRN (23:00)
[2017-03-26] MEDS ORDERED: ANUSOL HC CREAM 30GM TOP PRN (23:00)
[2017-03-27 00:58] VITALS: BP 142/89
[2017-03-27] MEDS: IBUPROFEN 800 MG TAB PO PRN ×3 (02:02→22:14)
--- NOTE | 2017-03-27 02:54 | DN ---
DATE OF DELIVERY: 03/26/2017 TIME OF : 223 GENDER: Male. SCORES: 9 and 9. WEIGHT: 7 pounds 11 ounces or 3482 grams. LACERATIONS: Second-degree midline laceration. ESTIMATED BLOOD LOSS: 400 mL. ANESTHESIA: Epidural. COUNTS: Five laparotomy sponges accounted for prior to and after delivery. One sharp removed from the delivery field. DELIVERY NOTE: On 03/26/2017, at 2231, Mrs. Brice, a 22-year-old 3, now para 1 had a spontaneous vaginal delivery of a liveborn male , scores 9 and 9, weight 7 pounds 11 ounces or 3482 grams. Head was delivered occiput anterior (OA). There was a nuchal cord which was manually reduced followed by delivery of right anterior shoulder, left posterior shoulder and corpus. was then handed to the mother with a good cry. Cord was clamped times two, was cut by the father of the baby under my direction. Cord blood was then obtained. Placenta was then drained and delivered grossly intact. A premixed bag of 500 mL of normal saline with 30 units of Pitocin was bolused along with uterine massage until the uterus was firm. In addition 1000 mcg of misoprostol was placed rectally for uterine stasis. Upon inspection, there was a second-degree laceration, which was repaired with 3-0 Vicryl Rapide. On re-inspection the cervix, vagina, and perineum were grossly intact, hemostatic. Mother and baby recovered in stable condition. The couple has decided to name their son
[2017-03-27 06:25] VITALS: BP 148/79
[2017-03-27] MEDS: ACETAMINOPHEN 500 MG TAB PO PRN ×2 (06:54→14:49)
[2017-03-27] MEDS: PRENATAL VITAMINS CHEWABLE TABLET PO SCH (08:33)
[2017-03-27 18:00] VITALS: BP 139/77
[2017-03-28] MEDS: ACETAMINOPHEN 500 MG TAB PO PRN (00:38)
[2017-03-28] MEDS: IBUPROFEN 800 MG TAB PO PRN (06:45)
[2017-03-28] MEDS: PRENATAL VITAMINS CHEWABLE TABLET PO SCH (07:54)
[2017-03-28] MEDS ORDERED: IBUP-1114 PO (08:32)
[2017-03-28] MEDS ORDERED: ACET50TA PO (08:32)
== END 2017-03-28 09:10 | disposition home or self-care (01) | DRG 775 ==
LOC: M LDI 07:44 → M OBS 03-27 00:50
PROVIDERS: ADMIT Obstetrics & Gynecology; ATTEND Obstetrics & Gynecology
PROC: 10E0XZZ Delivery of Products of Conception, External Approach (ICD-10-PCS; principal; 2017-03-26)
PROC: 0KQM0ZZ Repair Perineum Muscle, Open Approach (ICD-10-PCS; 2017-03-26)
PROC: 10907ZC Drainage of Amniotic Fluid, Therapeutic from Products of Conception, Via Natural or Artificial Opening (ICD-10-PCS; 2017-03-26)
PROC: 3E033GC Introduction of Other Therapeutic Substance into Peripheral Vein, Percutaneous Approach (ICD-10-PCS; 2017-03-26)
DX: O70.1 Second degree perineal laceration during delivery (principal); Z37.0 Single live birth; Z3A.39 39 weeks gestation of pregnancy; Z90.49 Acquired absence of other specified parts of digestive tract; Z79.899 Other long term (current) drug therapy; Z88.8 Allergy status to other drugs, medicaments and biological substances

== ENCOUNTER 2017-05-19 10:12 | Emergency (ER) | payer OTHER ==
[~2017-05-19] VITALS: Ht 167.6 cm; Wt 90.9 kg
[~2017-05-19 10:12] MED LIST changes: +ACET50TA PO; +IBUP-1114 PO
[2017-05-19 10:13] VITALS: BP 132/90
[2017-05-19] MEDS ORDERED: DICL500C PO (10:19)
[2017-05-19] MEDS ORDERED: IBUP-1022 PO (11:36)
[2017-05-19] MEDS ORDERED: IBUPROFEN 600 MG TAB PO ONE (11:45)
== END 2017-05-19 11:48 | disposition home or self-care (01) ==
LOC: M ED 10:12
DX: N61.0 Mastitis without abscess (principal); Z88.8 Allergy status to other drugs, medicaments and biological substances

== ENCOUNTER → 2017-05-24 | Outpatient (REF) | payer OTHER ==
[~2017-05-24] MED LIST changes: +DICL500C PO; +IBUP-1022 PO
== END ==
LOC: M LAB REF 17:06
PROVIDERS: ATTEND Obstetrics & Gynecology
DX: Z12.4 Encounter for screening for malignant neoplasm of cervix (principal)

== ENCOUNTER → 2017-11-22 | Outpatient (REF) | payer OTHER ==
[2017-11-22 18:18] LABS: BASO # 0.1 10^3/uL (0.0-0.2); BASO % 0.9 % (0.0-1.0); EOS # 0.2 10^3/uL (0.0-0.50); EOS % 2.2 % (0.0-3.0); HEMATOCRIT 41.4 % (36.0-47.0); HEMOGLOBIN 13.6 g/dl (12.0-15.5); IMMATURE GRANULOCYTE % 0.4 % (0-3.0); LYMPH # 2.4 10^3/uL (1.5-6.5); MEAN CORPUSCULAR HEMOGLOBIN 30.3 pg (27.0-33.0); MEAN CORPUSCULAR HGB CONC 32.9 g/dl (32.0-36.5); MEAN CORPUSCULAR VOLUME 92.2 fl (80.0-96.0); MONO # 0.6 10^3/uL (0.0-0.8); MONO % 5.5 % (0.0-5.0); NEUTROPHILS # 6.8 10^3/uL (1.8-7.7); PLATELET COUNT, AUTOMATED 205 10^3/uL (150-450); RED BLOOD COUNT 4.49 10^6/uL (4.00-5.40); WHITE BLOOD COUNT 10.1 10^3/uL (4.0-10.0)
[2017-11-22 18:36] LABS: ESTIMATED AVERAGE GLUCOSE 100 MG/DL (60-110); HEMOGLOBIN A1c 5.1 %
[2017-11-22 18:37] LABS: FREE T4 1.07 NG/DL (0.76-1.46); THYROID STIMULATING HORMONE 0.755 uIU/ML (0.358-3.740)
== END ==
LOC: M SFHCLERA 11:21
DX: E66.3 Overweight (principal)

== ENCOUNTER → 2017-12-05 | Outpatient (REF) | payer OTHER ==
[2017-12-05 11:45] LABS: BASO # 0.1 10^3/uL (0.0-0.2); EOS # 0.2 10^3/uL (0.0-0.50); EOS % 2.6 % (0.0-3.0); HEMATOCRIT 41.6 % (36.0-47.0); HEMOGLOBIN 14.1 g/dl (12.0-15.5); IMMATURE GRANULOCYTE % 0.4 % (0-3.0); LYMPH # 2.4 10^3/uL (1.5-6.5); LYMPH % 28.4 % (24.0-44.0); MEAN CORPUSCULAR HGB CONC 33.9 g/dl (32.0-36.5); MEAN CORPUSCULAR VOLUME 91.4 fl (80.0-96.0); MONO # 0.5 10^3/uL (0.0-0.8); MONO % 5.7 % (0.0-5.0); NEUTROPHILS # 5.2 10^3/uL (1.8-7.7); NEUTROPHILS % 61.9 % (36.0-66.0); PLATELET COUNT, AUTOMATED 240 10^3/uL (150-450); RED BLOOD COUNT 4.55 10^6/uL (4.00-5.40); RED CELL DISTRIBUTION WIDTH 12.4 % (11.5-14.5); WHITE BLOOD COUNT 8.4 10^3/uL (4.0-10.0)
[2017-12-05 12:19] LABS: C REACTIVE PROTEIN QUANTITATIV < 0.30 MG/DL (0.00-0.30)
[2017-12-05 12:42] LABS: ERYTHROCYTE SEDIMENTATION RATE 5 mm/hr (0-20)
== END ==
LOC: M SFHCLERA 10:24
DX: D72.829 Elevated white blood cell count, unspecified (principal)
CPT/HCPCS: 86140

== ENCOUNTER 2017-12-19 13:22 | Emergency (ER) | payer OTHER ==
[2017-12-19 17:59] LABS: BASO # 0.1 10^3/uL (0.0-0.2); BASO % 0.7 % (0.0-1.0); EOS # 0.2 10^3/uL (0.0-0.50); EOS % 1.3 % (0.0-3.0); HEMATOCRIT 43.8 % (36.0-47.0); HEMOGLOBIN 14.9 g/dl (12.0-15.5); IMMATURE GRANULOCYTE % 0.3 % (0-3.0); LYMPH # 3.3 10^3/uL (1.5-6.5); LYMPH % 28.5 % (24.0-44.0); MEAN CORPUSCULAR VOLUME 91.1 fl (80.0-96.0); MONO # 0.7 10^3/uL (0.0-0.8); MONO % 5.6 % (0.0-5.0); NEUTROPHILS # 7.4 10^3/uL (1.8-7.7); NEUTROPHILS % 63.6 % (36.0-66.0); PLATELET COUNT, AUTOMATED 250 10^3/uL (150-450); RED BLOOD COUNT 4.81 10^6/uL (4.00-5.40); RED CELL DISTRIBUTION WIDTH 12.2 % (11.5-14.5); WHITE BLOOD COUNT 11.7 10^3/uL (4.0-10.0)
[2017-12-19] MEDS: diphenhydrAMINE INJ 50MG/ML VIAL (J1200) IV ×2 (18:03)
[2017-12-19] MEDS: NS 1,000 ML IV ×2 (18:03)
[2017-12-19] MEDS: METOCLOPRAMIDE INJ 10MG/2ML VIAL (J2765) IV ×2 (18:03)
[2017-12-19] MEDS: KETOROLAC 30 MG/ML VIAL (J1885) IV ×2 (18:04)
[2017-12-19 18:19] LABS: ANION GAP 7 MEQ/L (8-16); BLOOD UREA NITROGEN 16 MG/DL (7-18); CALCIUM LEVEL 9.1 MG/DL (8.5-10.1); CARBON DIOXIDE LEVEL 26 MEQ/L (21-32); CHLORIDE LEVEL 107 MEQ/L (98-107); CREATININE FOR GFR 0.56 MG/DL (0.55-1.30); GLOMERULAR FILTRATION RATE > 60.0 (>60); GLUCOSE, FASTING 80 MG/DL (70-100); MAGNESIUM LEVEL 2.1 MG/DL (1.8-2.4); POTASSIUM SERUM 3.9 MEQ/L (3.5-5.1); SODIUM LEVEL 140 MEQ/L (136-145)
[2017-12-19] MEDS: ACETAMINOPHEN 325 MG TAB PO ×2 (19:10)
== END 2017-12-19 19:52 | disposition home or self-care (01) ==
LOC: M ED 13:22
DX: G43.909 Migraine, unspecified, not intractable, without status migrainosus (principal); K58.9 Irritable bowel syndrome, unspecified; Z90.49 Acquired absence of other specified parts of digestive tract; Z98.890 Other specified postprocedural states; Z88.8 Allergy status to other drugs, medicaments and biological substances
CPT/HCPCS: J1200